=== PATIENT | male | born 1960 | race Caucasian/White ===

== ENCOUNTER → 2016-12-14 | Outpatient (CLI) | payer BC ==
[~2016-12-14] MED LIST: ASPITAB42 PO; CHOL1000 PO; COEN1CAP17 PO; DLD2 PO; DRGTP12 TD; FERR18TA PO; IRON BISGLYCINATE PO; LCTL45 PO; LDDP5 TD; LISI10TA PO; LVNIS100 SQ; MDR4 PO; OXYC-106 PO; OXYC-164 PO; PANCCAP3 PO; POTA-65 PO; PRT/40 PO; RIFA550T2 PO; RIVA1TAB4 PO; [UNRECOGNIZED DRUG - REMARK] PO
--- NOTE | 2016-12-14 10:01 | DIAGNOSTIC IMAGING REPORT ---
RIGHT RIBS UNILATERAL WITH PA CHEST CLINICAL HISTORY: C67.9 Malignant neoplasm of [id number] Malignant neoplasm of l Right bladder carcinoma COMPARISON STUDY: None FINDINGS: Cortical fracture right sixth rib. Remaining ribs are unremarkable. No evidence pneumothorax. IMPRESSION: Nondisplaced cortical fracture right sixth rib. No evidence for pneumothorax. Electronically signed by: Jeremy Rubalcava M.D. 12/14/2016 10:00 AM Dictated Date/Time: 12/14/2016 9:58 AM
--- NOTE | 2016-12-14 11:05 | DIAGNOSTIC IMAGING REPORT ---
LUMBAR SPINE 5 VIEWS CLINICAL HISTORY: Chronic low back pain. FINDINGS: Five views of the lumbar spine are compared to a study dated 02/19/2013. The skeletal structures appear slightly osteopenic. There is no radiographic evidence of fracture or malalignment. There is straightening of the lumbar lordosis. Anterior osteophytes are seen throughout. The transverse and spinous processes appear intact. There is no evidence of spondylolysis. There is advanced degenerative disc space narrowing at L4-L5 with associated endplate sclerosis. There is a large posterior disc osteophyte complex at this level which may contribute to acquired compromise of the central canal. Mild to moderate narrowing is seen at L5-S1. The remaining disc spaces appear preserved. The partially imaged bony pelvis appears intact. There is a nonobstructed abdominal bowel gas pattern. Atherosclerotic calcification is noted throughout the abdominal aorta. A nonobstructing left calculus is suspected. IMPRESSION: 1. No acute bony abnormality is seen involving the lumbosacral spine. 2. Degenerative change as above, greatest at L4-L5. This has modestly progressed from the 2013 examination. 3. Suspect a nonobstructing left renal calculus. Dictated: 12/14/2016 10:50 AM Transcribed: 12/14/2016 11:05 AM [facility] Electronically signed by: Ryan Nagel M.D. 12/14/2016 11:06 AM Dictated Date/Time: 12/14/2016 10:50 AM
== END | disposition home or self-care (01) ==
LOC: C.RAD1850 09:25
PROVIDERS: ATTEND Internal Medicine
DX: M54.5 Low back pain (principal); S22.31XA Fracture of one rib, right side, initial encounter for closed fracture; X58.XXXA Exposure to other specified factors, initial encounter; C22.9 Malignant neoplasm of liver, not specified as primary or secondary; C67.9 Malignant neoplasm of bladder, unspecified; R07.9 Chest pain, unspecified

== ENCOUNTER → 2017-01-26 | Outpatient (CLI) | payer BC ==
--- NOTE | 2017-01-27 08:08 | DIAGNOSTIC IMAGING REPORT ---
MRCP CLINICAL HISTORY: R16.0 Liver massC22.9 Malignant neoplasm of liver COMPARISON STUDY: CT scan dated 08/25/2016 FINDINGS: The spleen is markedly enlarged measuring 21 cm. The liver demonstrates capsular retraction. A 7 cm lobulated central hepatic mass is suspected. There is also a suspected 42 mm right lobe mass. There is no evidence for pancreatic or common bile duct dilatation. There are dilated peripheral intrahepatic biliary ducts, likely secondary to obstruction from the large central mass. There is a small amount of subcapsular hepatic fluid. There are T2 bright renal lesions likely are presenting cysts. IMPRESSION: 1. Intrahepatic biliary ductal dilatation which is felt to be secondary to a large central hepatic mass 2. Also evident is a right lobe hepatic mass 3. Hepatic capsular retraction 4. Marked splenomegaly 5. No evidence of common bile duct dilatation. No evidence of pancreatic duct dilatation. 6. The large central hepatic mass may invade the portal vein. 7. Cholelithiasis. Electronically signed by: Home Vargas M.D. 01/27/2017 8:07 AM Dictated Date/Time: 01/27/2017 8:02 AM
== END | disposition home or self-care (01) ==
LOC: C.MRI 19:27
PROVIDERS: ATTEND Internal Medicine
DX: R16.0 Hepatomegaly, not elsewhere classified (principal); C22.9 Malignant neoplasm of liver, not specified as primary or secondary; K80.20 Calculus of gallbladder without cholecystitis without obstruction; R16.1 Splenomegaly, not elsewhere classified

== ENCOUNTER → 2017-02-24 | Outpatient (CLI) | payer BC ==
[~2017-02-24] MED LIST changes: -DLD2 PO; +HYDR2TAB3 PO; +PANT40TA2 PO; -PRT/40 PO
[2017-02-24 18:08] LABS: BASO % 0.3 %; BASO ABS # 0.02 K/uL (0-0.2); COMPLETE YES; EOS % 0.8 %; HEMATOCRIT 41.4 % (42-52); IG% 2.9 %; LYMPH % 8.1 %; LYMPH ABS # 0.62 K/uL (1.2-3.4); MEAN CELL VOLUME 86.4 fL (80-100); MEAN CORPUSCULAR HEMOGLOBIN 27.6 pg (25-34); MEAN CORPUSCULAR HGB CONC 31.9 g/dl (32-36); MEAN PLATELET VOLUME 11.5 fL (7.4-10.4); MONO % 7.4 %; NEUT % 80.5 %; PLATELET COUNT 111 K/uL (130-400); RED BLOOD COUNT 4.79 M/uL (4.7-6.1); WHITE BLOOD COUNT 7.69 K/uL (4.8-10.8)
[2017-02-24 18:33] LABS: ALB/GLOB RATIO 0.4 (0.9-2); ALKALINE PHOSPHATASE 265 U/L (45-117); ALT/SGPT 63 U/L (12-78); AST/SGOT 87 U/L (15-37); BLOOD UREA NITROGEN 18 mg/dl (7-18); BUN/CREATININE RATIO 26.2 (10-20); CALCIUM 8.7 mg/dl (8.5-10.1); CARBON DIOXIDE 28 mmol/L (21-32); CHLORIDE 106 mmol/L (98-107); CREATININE 0.69 mg/dl (0.60-1.40); GLUCOSE 114 mg/dl (70-99); POTASSIUM 3.6 mmol/L (3.5-5.1); SODIUM 140 mmol/L (136-145)
== END | disposition home or self-care (01) ==
LOC: C.LABBFT 11:35
PROVIDERS: ATTEND Internal Medicine
DX: C22.9 Malignant neoplasm of liver, not specified as primary or secondary (principal)

== ENCOUNTER → 2017-03-09 | Outpatient (CLI) | payer BC ==
[2017-03-09 12:09] LABS: MEAN CORPUSCULAR HGB CONC 31.2 g/dl (32-36)
[2017-03-09 12:12] LABS: HEMATOCRIT 39.8 % (42-52); MEAN CELL VOLUME 83.8 fL (80-100); MEAN CORPUSCULAR HEMOGLOBIN 26.1 pg (25-34); RED BLOOD COUNT 4.75 M/uL (4.7-6.1); WHITE BLOOD COUNT 9.05 K/uL (4.8-10.8)
[2017-03-09 12:49] LABS: PLATELET COUNT 111 K/uL (130-400)
[2017-03-09 12:50] LABS: BASO % 0.3 %; BASO ABS # 0.03 K/uL (0-0.2); COMPLETE YES; EOS % 0.4 %; LYMPH % 6.2 %; LYMPH ABS # 0.56 K/uL (1.2-3.4); MONO % 8.1 %; PLT ESTIMATE DECREASED
[2017-03-09 12:52] LABS: ALB/GLOB RATIO 0.4 (0.9-2); ALKALINE PHOSPHATASE 281 U/L (45-117); ALT/SGPT 69 U/L (12-78); AST/SGOT 107 U/L (15-37); BLOOD UREA NITROGEN 17 mg/dl (7-18); CALCIUM 8.7 mg/dl (8.5-10.1); CARBON DIOXIDE 25 mmol/L (21-32); CHLORIDE 107 mmol/L (98-107); CREATININE 0.67 mg/dl (0.60-1.40); GLUCOSE 127 mg/dl (70-99); POTASSIUM 3.9 mmol/L (3.5-5.1); SODIUM 138 mmol/L (136-145)
== END | disposition home or self-care (01) ==
LOC: C.LABBFT 10:07
PROVIDERS: ATTEND Internal Medicine
DX: R16.0 Hepatomegaly, not elsewhere classified (principal)

== ENCOUNTER 2017-03-20 12:10 | Inpatient (IN) | payer BC ==
[~2017-03-20] VITALS: Ht 172.7 cm; Wt 92.4 kg
[~2017-03-20 12:10] MED LIST changes: -DRGTP12 TD; -FERR18TA PO; -HYDR2TAB3 PO; -LVNIS100 SQ; -OXYC-164 PO; -PANCCAP3 PO
[2017-03-20] MEDS ORDERED: SODIUM CHLORIDE 0.9% 1000ML 250 ML IV STA (12:33)
[2017-03-20] MEDS ORDERED: SODIUM CHLORIDE 0.9% 1000ML 1,000 ML IV STA (12:33)
--- NOTE | 2017-03-20 12:53 | EMERGENCY ROOM VISIT NOTE ---
History Report prepared by Grecia: Samir Oswald Under the Supervision of: Dr. Adriel Beltre M.D. First contact with patient: 12:22 Chief Complaint: ABDOMINAL PAIN Stated Complaint: STOMACH PAINS Nursing Triage Summary: pt reports hx of liver CA . over several weeks abdominal pain has been much worse . " I think my ammonia levels are high and I have loose stools History of Present Illness The patient is a 56 year old male who presents to the Emergency Room with complaints of constant abdominal pain for the last two or three weeks. The patient states that whenever he eats he has a bowel movement within 30 minutes, and he feels more distended which is worse when he eats. The patient states that a year ago he has a small bowel obstruction, and he had to get some of his intestine out. The patient denies any nausea, vomiting, diarrhea, melena, hematochezia, fever, chest pain, or shortness of breath. He states that he is not taking any blood thinners, he has not had a change of medicine, and he denies any fluid in his abdomen. He has a history of hepatitis C and liver cancer, though he is not currently being treated. Source of History: patient Onset: two or three weeks Position: abdomen Timing: constant Modifying Factors (Worsening): eating Associated Symptoms: No SOB, No chest pain, No diarrhea, No fevers, No hematochezia, No melena, No nausea, No vomiting Review of Systems See HPI for pertinent positives & negatives. A total of 10 systems reviewed and were otherwise negative. Past Medical & Surgical Medical Problems: (1) Altered mental status (2) Bladder cancer (3) Bursitis (4) CALCULUS OF KIDNEY (5) CALCULUS OF URETER (6) Chronic Hepatitis C W/O Hepatic Coma (7) Diverticulitis Colon (W/O Ment Of Hemorrhage) (8) Esophageal Reflux (9) Hyperbilirubinemia (10) HYPERTENSION NOS (11) Lumbar Disc Displacement (12) Obesity (13) Rheumatoid arthritis (14) Rheumatoid arthritis of upper arm Old medical records were reviewed. Nurse's notes were reviewed and I agree with. Family History Cancer Hypertension Social History Smoking Status: Never Smoker Alcohol Use: none Marital Status: Housing Status: lives with significant other Occupation Status: employed Current/Historical Medications Scheduled Cholecalciferol (Vitamin D3), 5,000 INTER.UNIT PO DAILY Coenzyme Q10 (Ubidecarenone) (Co Q 10), 100 MG PO BID Ferrous Sulfate (Iron), 1 TAB PO BID Lidocaine (Lidocaine), 1 PATCH TD QAM Lisinopril (Prinivil), 10 MG PO DAILY Methylprednisolone (Methylprednisolone), 4 MG PO DAILY Oxycodone/Acetaminophen 10MG/325MG (Percocet 10MG/325MG), 1 TAB PO QID Pantoprazole (Pantoprazole Sodium), 40 MG PO BID Potassium Chloride (Potassium Chloride ER), 1 TAB PO TID Scheduled PRN [id number] (Headache Relief), 2 TABS PO Q6 PRN for Pain Allergies Coded Allergies: No Known Allergies (Verified , 08/25/16) Physical Exam Vital Signs Date Time Temp Pulse Resp B/P Pulse Ox O2 Delivery O2 Flow Rate FiO2 03/20/17 13:44 84 16 109/75 97 Room Air 03/20/17 12:49 83 03/20/17 12:12 36.4 104 18 146/95 95 Room Air Physical Exam General: Chronically ill appearing, jaundiced, middle aged male in no acute distress. HEENT: Scleral icterus. Normal cephalic atraumatic. Pupils are equal round and reactive to light. Extraocular movements are intact. Oropharynx is pink with moist mucous membranes. No swelling of the mouth lips or tongue. Neck: Supple with a midline trachea. No meningeal signs or stiffness, no JVD or bruits. No Stridor. Chest: Clear to auscultation bilaterally. No wheezes or rhonchi. No increased work of breathing. Heart: regular rate and rhythm. Abdomen: Mildly distended, well healing surgical scar incision, moderate tenderness over the lower abdominal bilaterally, without rebound guarding or rigidity. Extremities: No cyanosis clubbing or edema. No calf tenderness or assymetry Spine/Back. Non tender to palpation. No CVA tenderness Skin: Good turgor without rashes. Neurologic exam: Cranial nerves two through 12 are intact. Motor and sensation are intact and symmetrical throughout. Medical Decision & Procedures ER Provider Diagnostic Interpretation: Radiology results as stated below per my review and radiologist interpretation: CHEST ONE VIEW PORTABLE HISTORY: Atypical CHEST PAIN COMPARISON: Chest 08/25/2016. FINDINGS: Mild chronic interstitial thickening remains unchanged. No new focal lung consolidations. The heart remains mildly enlarged. No pleural effusions. No pneumothorax. Calcified AP window lymph nodes are again noted. IMPRESSION: No significant change compared to the prior study. No acute process. Stable chronic interstitial thickening. Electronically signed by: Con Richardson M.D. 03/20/2017 1:12 PM Dictated Date/Time: 03/20/2017 1:11 PM A[address]OMEN AND PELVIS CT WITHOUT CONTRAST CT DOSE: 1217.90 mGy.cm HISTORY: Epigastric pain. eval for obstruction, infection TECHNIQUE: Multiaxial CT images of the abdomen and pelvis were performed without contrast. COMPARISON STUDY: MRCP 01/26/2017. Abdomen and pelvis CT 08/25/2016. FINDINGS: The patient's infiltrative central hepatic mass is better appreciated on the recent MRCP. There is also an additional masses within the right hepatic dome. These result in the peripheral intrahepatic bile duct dilatation which remains unchanged. Cholelithiasis and bilateral nephrolithiasis. Splenomegaly persists. Small to moderate amount of ascites. Multiple upper abdominal varicosities persist. The pancreas and adrenal glands are unremarkable. No retroperitoneal lymphadenopathy. There are few new pulmonary nodules seen at the lung bases. The largest in the right middle lobe measures 7 mm. These likely represent metastatic foci. No pneumoperitoneum. No pneumatosis. No suspicious lytic or blastic osseous lesions. Healing/healed right anterior rib fracture. Small fat and fluid containing midline incisional hernia. The bladder and prostate are unremarkable. Small fat-containing bilateral inguinal hernias. Suboptimal evaluation for bowel pathology due to the lack of intravenous and oral contrast. There may be mild thickening within the proximal sigmoid colon. Small bowel anastomosis within the mid anterior abdomen. No evidence for bowel obstruction. Mild mesenteric edema. Colonic diverticulosis. IMPRESSION: 1. There is suggestion of mild thickening of the proximal sigmoid colon. This could be due to underdistention or a low-grade nonspecific colitis or less likely mild diverticulitis. There are no definite inflamed diverticula at this location. 2. The patient's infiltrative central hepatic mass and right hepatic lobe masses are better appreciated on the recent MRCP. 3. There are a few new nodules with the largest in the right middle lobe measuring 7 mm. These are consistent with metastatic foci. 4. Small to moderate ascites. 5. Cholelithiasis. 6. Bilateral nephrolithiasis. No hydronephrosis. 7. Stable splenomegaly.. Electronically signed by: Con Richardson M.D. 03/20/2017 1:54 PM Dictated Date/Time: 03/20/2017 1:40 PM Laboratory Results 03/20/17 12:40 Red Blood Count 4.71, Mean Corpuscular Volume 81.1, Mean Corpuscular Hemoglobin 27.2, Mean Corpuscular Hemoglobin Concent 33.5, Mean Platelet Volume 10.4 03/20/17 12:40 Test 03/20/17 12:40 03/20/17 13:20 White Blood Count 9.87 K/uL (4.8-10.8) Red Blood Count 4.71 M/uL (4.7-6.1) Hemoglobin 12.8 g/dL (14.0-18.0) Hematocrit 38.2 % (42-52) Mean Corpuscular Volume 81.1 fL (80-100) Mean Corpuscular Hemoglobin 27.2 pg (25-34) Mean Corpuscular Hemoglobin Concent 33.5 g/dl (32-36) Platelet Count 153 K/uL (130-400) Mean Platelet Volume 10.4 fL (7.4-10.4) RDW Standard Deviation 60.6 fL (36.4-46.3) RDW Coefficient of Variation 20.4 % (11.5-14.5) Neutrophils % (Manual) 77.8 % Lymphocytes % (Manual) 7.7 % Monocytes % (Manual) 3.4 % Eosinophils % (Manual) 3.4 % Metamyelocytes % 1.7 % Myelocytes % 6.0 % Neutrophils # (Manual) 7.68 K/uL (1.4-6.5) Total Absolute Neutrophils 7.68 K/uL (1.4-6.5) Lymphocytes # (Manual) 0.76 K/uL (1.2-3.4) Total Absolute Lymphocytes 0.76 K/uL (1.2-3.4) Monocytes # (Manual) 0.34 K/uL (0.11-0.59) Eosinophils # (Manual) 0.34 K/uL (0-0.5) Metamyelocytes # 0.17 K/uL (0-0) Myelocytes # 0.59 K/uL (0-0) Anisocytosis PRESENT Target Cells 1+ Echinocytes 1+ Prothrombin Time 20.9 SECONDS (9.0-12.0) Prothromb Time International Ratio 1.9 (0.9-1.1) Activated Partial Thromboplast Time 33.2 SECONDS (21.0-31.0) Partial Thromboplastin Ratio 1.3 Anion Gap 11.0 mmol/L (3-11) Est Creatinine Clear Calc Drug Dose 115.3 ml/min Estimated GFR () 116.1 Estimated GFR (Non- 100.2 BUN/Creatinine Ratio 25.5 (10-20) Calcium Level 8.4 mg/dl (8.5-10.1) Aspartate Amino Transf (AST/SGOT) 186 U/L (15-37) Alanine Aminotransferase (ALT/SGPT) 95 U/L (12-78) Alkaline Phosphatase 436 U/L (45-117) Total Protein 7.5 gm/dl (6.4-8.2) Albumin 2.1 gm/dl (3.4-5.0) Lipase 128 U/L (73-393) Ammonia 46.0 umol/L (11-32) Laboratory studies as stated above per my review. Medications Administered Medications (Trade) Dose Ordered Sig/Shashi Route Start Time Stop Time Status Last Admin Dose Admin Sodium Chloride 250 ml @ 999 mls/hr Q16M STAT IV 03/20/17 12:33 03/20/17 12:48 DC 03/20/17 12:33 999 MLS/HR Sodium Chloride (Nss 1000ml) 1,000 ml @ 100 mls/hr Q10H STAT IV 03/20/17 12:33 03/20/17 16:54 DC 03/20/17 13:42 100 MLS/HR Ondansetron HCl (Zofran Inj) 4 mg NOW STAT IV 03/20/17 12:54 03/20/17 12:55 DC 03/20/17 13:00 4 MG Hydromorphone HCl (Dilaudid Inj) 1 mg NOW STAT IV 03/20/17 12:54 03/20/17 12:55 DC 03/20/17 13:01 1 MG Hydromorphone HCl (Dilaudid Inj) 1 mg NOW STAT IV 03/20/17 14:10 03/20/17 14:11 DC 03/20/17 14:22 1 MG ECG Indication: abdominal pain Rate (beats per minute): 86 Rhythm: normal sinus Findings: PAC (occasional), no acute ischemic change Comparison ECG Date: 08/25/16 Change: PACs are now present ED Course 1222: Past medical records reviewed. The patient was evaluated in room B5, and a complete history and physical examination were performed. 1233: Sodium Chloride 1000 ml @ 100 mls/hr IV, Sodium Chloride 250 ml @ 999 mls/ hr IV 1254: Dilaudid Inj 1mg IV, Zofran Inj 4mg IV 1354: I reassessed the patient, and he states that he went to [facility] for treatment, and they said there is nothing that they could do for him. 1406: I discussed the patient's case with Dr. Sosa. He is going to evaluate the patient for further treatment 1409: I reassessed the patient, and he was in more pain, and he wants more pain medication. 1410: Dilaudid Inj 1mg IV Medical Decision Differentials include, but are not limited to; liver failure, infection, SBP, ascites, electrolyte or metabolic abnormality. This patient comes in as described above. He has advanced liver disease/liver cancer. He has been seen by the cancer [facility] and according to the patient is they stopped treatment in December and told him that they could not help them anymore. He comes in with complaints when he eats he has to have immediate bowel movement and is concerned for dehydration. He does have some lower abdominal discomfort with this as well. He's gotten increasingly jaundiced as well. He's had no confusion. IV access established and multiple blood testing was obtained. He was found to be significantly jaundiced on exam and has a bilirubin of 17 which is up significantly from 11 days ago when it was 6. He has no significant electrolyte or metabolic abnormality otherwise. I did a noncontrast CT of his abdomen. He does have this hepatic mass. He may also have some colitis. I think that his symptoms are likely from malabsorption from his liver disease. He has had an MRCP in December and was told that they could not stent the liver. He also told me that they told him at the time they could not externally drain him either. The patient did receive IV hydration as well as IV Dilaudid for pain and nausea management as well as IV Zofran. He did receive additional dose of Dilaudid as well. I do think he needs to be admitted for pain management hydration and further treatment and evaluation. I have consulted the [facility] hospitalist to see him in the ER for likely admission Consults Time Called: 1401 Consulting Physician: Dr. Sosa Returned Call: [phone] I discussed the patient's case with Dr. Sosa. He is going to evaluate the patient for further treatment Impression Primary Impression: Liver failure Additional Impressions: Lower abdominal pain Colitis Hepatitis Scribe Attestation The scribe's documentation has been prepared under my direction and personally reviewed by me in its entirety. I confirm that the note above accurately reflects all work, treatment, procedures, and medical decision making performed by me. Departure Information Dispostion Being Evaluated By Hospitalist Referrals Rolando Shoemaker M.D. (PCP) Patient Instructions [facility] Problem Qualifiers
[2017-03-20] MEDS ORDERED: ONDANSETRON INJ 2 MG/ML 2 ML VIAL IV STA (12:54)
[2017-03-20] MEDS ORDERED: HYDROmorphone INJ 1 MG/ML SYR IV STA ×2 (12:54→14:10)
[2017-03-20] MEDS ORDERED: FERR18TA PO (12:59)
[2017-03-20 13:08] LABS: HEMATOCRIT 38.2 % (42-52); MEAN CELL VOLUME 81.1 fL (80-100); MEAN CORPUSCULAR HEMOGLOBIN 27.2 pg (25-34); MEAN CORPUSCULAR HGB CONC 33.5 g/dl (32-36); MEAN PLATELET VOLUME 10.4 fL (7.4-10.4); PLATELET COUNT 153 K/uL (130-400); RED BLOOD COUNT 4.71 M/uL (4.7-6.1); WHITE BLOOD COUNT 9.87 K/uL (4.8-10.8)
--- NOTE | 2017-03-20 13:13 | DIAGNOSTIC IMAGING REPORT ---
CHEST ONE VIEW PORTABLE HISTORY: Atypical CHEST PAIN COMPARISON: Chest 08/25/2016. FINDINGS: Mild chronic interstitial thickening remains unchanged. No new focal lung consolidations. The heart remains mildly enlarged. No pleural effusions. No pneumothorax. Calcified AP window lymph nodes are again noted. IMPRESSION: No significant change compared to the prior study. No acute process. Stable chronic interstitial thickening. Electronically signed by: Con Richardson M.D. 03/20/2017 1:12 PM Dictated Date/Time: 03/20/2017 1:11 PM
[2017-03-20 13:18] LABS: INR 1.9 (0.9-1.1); PARTIAL THROMBOPLASTIN RATIO 1.3; PROTHROMBIN TIME (PATIENT) 20.9 SECONDS (9.0-12.0)
[2017-03-20 13:40] LABS: POTASSIUM 3.5 mmol/L (3.5-5.1)
[2017-03-20 13:42] LABS: BUN/CREATININE RATIO 25.5 (10-20); CALCIUM 8.4 mg/dl (8.5-10.1); CREATININE 0.78 mg/dl (0.60-1.40)
--- NOTE | 2017-03-20 13:55 | DIAGNOSTIC IMAGING REPORT ---
ABDOMEN AND PELVIS CT WITHOUT CONTRAST CT DOSE: 1217.90 mGy.cm HISTORY: Epigastric pain. eval for obstruction, infection TECHNIQUE: Multiaxial CT images of the abdomen and pelvis were performed without contrast. COMPARISON STUDY: MRCP 01/26/2017. Abdomen and pelvis CT 08/25/2016. FINDINGS: The patient's infiltrative central hepatic mass is better appreciated on the recent MRCP. There is also an additional masses within the right hepatic dome. These result in the peripheral intrahepatic bile duct dilatation which remains unchanged. Cholelithiasis and bilateral nephrolithiasis. Splenomegaly persists. Small to moderate amount of ascites. Multiple upper abdominal varicosities persist. The pancreas and adrenal glands are unremarkable. No retroperitoneal lymphadenopathy. There are few new pulmonary nodules seen at the lung bases. The largest in the right middle lobe measures 7 mm. These likely represent metastatic foci. No pneumoperitoneum. No pneumatosis. No suspicious lytic or blastic osseous lesions. Healing/healed right anterior rib fracture. Small fat and fluid containing midline incisional hernia. The bladder and prostate are unremarkable. Small fat-containing bilateral inguinal hernias. Suboptimal evaluation for bowel pathology due to the lack of intravenous and oral contrast. There may be mild thickening within the proximal sigmoid colon. Small bowel anastomosis within the mid anterior abdomen. No evidence for bowel obstruction. Mild mesenteric edema. Colonic diverticulosis. IMPRESSION: 1. There is suggestion of mild thickening of the proximal sigmoid colon. This could be due to underdistention or a low-grade nonspecific colitis or less likely mild diverticulitis. There are no definite inflamed diverticula at this location. 2. The patient's infiltrative central hepatic mass and right hepatic lobe masses are better appreciated on the recent MRCP. 3. There are a few new nodules with the largest in the right middle lobe measuring 7 mm. These are consistent with metastatic foci. 4. Small to moderate ascites. 5. Cholelithiasis. 6. Bilateral nephrolithiasis. No hydronephrosis. 7. Stable splenomegaly.. Electronically signed by: Con Richardson M.D. 03/20/2017 1:54 PM Dictated Date/Time: 03/20/2017 1:40 PM
[2017-03-20 14:09] LABS: ANISOCYTOSIS PRESENT; COMPLETE YES; ECHINOCYTES 1+; EOSINOPHIL % 3.4 %; LYMPH ABS # 0.76 K/uL (1.2-3.4); LYMPHOCYTE % 7.7 %; META ABS # 0.17 K/uL (0-0); METAMYELOCYTE % 1.7 %; NEUTROPHILS % 77.8 %; TARGET CELLS 1+
[2017-03-20 15:33] VITALS: Ht 172.7 cm; Wt 92.4 kg
[2017-03-20] MEDS ORDERED: POLYETHYLENE (MIRALAX) 17 GM PACK PO PRN (15:45)
[2017-03-20] MEDS ORDERED: ONDANSETRON INJ 2 MG/ML 2 ML VIAL IV PRN (15:45)
[2017-03-20] MEDS ORDERED: ACETAMINOPHEN 325 MG TAB PO PRN (15:45)
[2017-03-20] MEDS ORDERED: ALUMINUM/MAGNESIUM/SIMETH (MAALOX MAX) 30 ML UDC PO PRN (15:45)
[2017-03-20] MEDS ORDERED: ZOLPIDEM TARTRATE 5 MG TAB PO PRN ×2 (15:45)
[2017-03-20] MEDS ORDERED: MAGNESIUM HYDROXIDE SUSP 30 ML UDC PO PRN (15:45)
[2017-03-20] MEDS ORDERED: HYDROmorphone HCL 2 MG TAB PO PRN (16:00)
[2017-03-20 16:17] VITALS: O2SAT 96
--- NOTE | 2017-03-20 16:42 | History and Physical ---
History & Physical Date & Time of Service: March 20, 2017 at 14:10 Chief Complaint: Stomach Pains Primary Care Physician: Rolando Shoemaker M.D. History of Present Illness Source: patient, parent, spouse, partner 56M with a PMHx with inoperable end stage metastatic liver cancer presents with abdominal pain and fast GI transit after eating. The symptoms have been worsening in the past week and the patient is currently unable to eat without running to the bathroom. The patient would like alleviation of these symptoms and abdominal pain after eating. Pt has also recently noticed that his eyes have been turning more yellow during this period. The patient sees Dr. Shoemaker and isn't following with a GI or Heme/ Onc doc in [place]. Pt understands the terminal nature of his condition and has not involved hospice care yet - Dr. Shoemaker is managing the hospice treatment. The pt relates a story that when he eats a chip with salsa he will have to run to the bathroom in 20-30 minutes and have abdominal pain. Pt denies having diarrhea, states that his stools are formed. Pt has been drinking mostly liquids this past week - soda, juice and water. Pt is interested in the possible palliative radiation treatment. Pt and also confirmed that the pt is DNR/DNI. ROS: Lost 17lbs between PCP visits. No fevers, no chest pain, no SOB. Skin is mildly itchy. PSHx: Surgery for SBO in 2016. SHx: History of Hep C, former smoker, does not drink alcohol. + Past Medical/Surgical History Medical Problems: (1) Bladder cancer Status: Resolved (2) Bursitis Status: Chronic (3) CALCULUS OF KIDNEY Status: Resolved (4) CALCULUS OF URETER Status: Resolved (5) Chronic Hepatitis C W/O Hepatic Coma Status: Chronic (6) Diverticulitis Colon (W/O Ment Of Hemorrhage) Status: Resolved (7) Esophageal Reflux Status: Chronic (8) HYPERTENSION NOS Status: Chronic (9) Lumbar Disc Displacement Status: Chronic (10) Obesity Status: Chronic (11) Rheumatoid arthritis Status: Chronic (12) Rheumatoid arthritis of upper arm Status: Resolved Family History Cancer Hypertension Social History Smoking Status: Never Smoker Marital Status: Occupational Status: employed Immunizations History of Influenza Vaccine: Yes History of Tetanus Vaccine?: UTD History of Pneumococcal: Yes History of Hepatitis B Vaccine: No Multi-Drug Resistant Organisms History of MDRO: No Allergies Coded Allergies: No Known Allergies (Verified , 08/25/16) Home Medications Scheduled Cholecalciferol (Vitamin D3), 5,000 INTER.UNIT PO DAILY Coenzyme Q10 (Ubidecarenone) (Co Q 10), 100 MG PO BID Ferrous Sulfate (Iron), 1 TAB PO BID Lidocaine (Lidocaine), 1 PATCH TD QAM Lisinopril (Prinivil), 10 MG PO DAILY Methylprednisolone (Methylprednisolone), 4 MG PO DAILY Oxycodone/Acetaminophen 10MG/325MG (Percocet 10MG/325MG), 1 TAB PO QID Pantoprazole (Pantoprazole Sodium), 40 MG PO BID Potassium Chloride (Potassium Chloride ER), 1 TAB PO TID Scheduled PRN Pgsnuxp-Xljdowygtekjw-Tekqvbox (Headache Relief), 2 TABS PO Q6 PRN for Pain Review of Systems Constitutional: No chills, No fever Respiratory: No cough, No shortness of breath, No sputum, No wheezing Abdomen: + pain, No nausea, No vomiting Musculoskeletal: No joint pain, No muscle pain Endocrine: No fatigue Physical Exam Vital Signs Date Time Temp Pulse Resp B/P Pulse Ox O2 Delivery O2 Flow Rate FiO2 03/20/17 13:44 84 16 109/75 97 Room Air 03/20/17 12:49 83 03/20/17 12:12 36.4 104 18 146/95 95 Room Air General Appearance: WD/WN, + pertinent finding (jaundice with scleral icterus) Eyes: PERRL, + pertinent finding (scleral icterus) Respiratory/Chest: chest non-tender, lungs clear, normal breath sounds, no respiratory distress, no accessory muscle use Cardiovascular: regular rate, rhythm, no edema, no gallop, no murmur, normal peripheral pulses Abdomen/GI: normal bowel sounds, no pulsatile mass, + tenderness, + pertinent finding (pt has diffuse ascites over the abdomen, enlarged belly, multiple distended veins over lateral and medial abdomen, difficult to palpate organomegaly due to abdominal . TTP over the umbilicus and periumbilically. Non tender flanks. Pt has pain when asked to sit up. ) Back: no CVA tenderness Extremities/Musculoskelatal: + pertinent finding (Good muscle strength in the feet bilaterally, to extension and flexion. 2+ pitting edema bilaterally. TTP right ankle. ) Neurologic/Psych: no motor/sensory deficits, alert, normal mood/affect, oriented x 3 Diagnostics Laboratory Results Results Past 24 Hours Test 03/20/17 12:40 03/20/17 13:20 Range/Units White Blood Count 9.87 4.8-10.8 K/uL Red Blood Count 4.71 4.7-6.1 M/uL Hemoglobin 12.8 14.0-18.0 g/dL Hematocrit 38.2 42-52 % Mean Corpuscular Volume 81.1 80-100 fL Mean Corpuscular Hemoglobin 27.2 25-34 pg Mean Corpuscular Hemoglobin Concent 33.5 32-36 g/dl Platelet Count 153 130-400 K/uL Mean Platelet Volume 10.4 7.4-10.4 fL RDW Standard Deviation 60.6 36.4-46.3 fL RDW Coefficient of Variation 20.4 11.5-14.5 % Neutrophils % (Manual) 77.8 % Lymphocytes % (Manual) 7.7 % Monocytes % (Manual) 3.4 % Eosinophils % (Manual) 3.4 % Metamyelocytes % 1.7 % Myelocytes % 6.0 % Neutrophils # (Manual) 7.68 1.4-6.5 K/uL Total Absolute Neutrophils 7.68 1.4-6.5 K/uL Lymphocytes # (Manual) 0.76 1.2-3.4 K/uL Total Absolute Lymphocytes 0.76 1.2-3.4 K/uL Monocytes # (Manual) 0.34 0.11-0.59 K/uL Eosinophils # (Manual) 0.34 0-0.5 K/uL Metamyelocytes # 0.17 0-0 K/uL Myelocytes # 0.59 0-0 K/uL Anisocytosis PRESENT Target Cells 1+ Echinocytes 1+ Prothrombin Time 20.9 9.0-12.0 SECONDS Prothromb Time International Ratio 1.9 0.9-1.1 Activated Partial Thromboplast Time 33.2 21.0-31.0 SECONDS Partial Thromboplastin Ratio 1.3 Sodium Level 138 136-145 mmol/L Potassium Level 3.5 3.5-5.1 mmol/L Chloride Level 103 98-107 mmol/L Carbon Dioxide Level 24 21-32 mmol/L Anion Gap 11.0 3-11 mmol/L Blood Urea Nitrogen 20 7-18 mg/dl Creatinine 0.78 0.60-1.40 mg/dl Est Creatinine Clear Calc Drug Dose 115.3 ml/min Estimated GFR () 116.1 Estimated GFR (Non- 100.2 BUN/Creatinine Ratio 25.5 10-20 Random Glucose 127 70-99 mg/dl Calcium Level 8.4 8.5-10.1 mg/dl Total Bilirubin 17.8 0.2-1 mg/dl Direct Bilirubin 14.0 0-0.2 mg/dl Aspartate Amino Transf (AST/SGOT) 186 15-37 U/L Alanine Aminotransferase (ALT/SGPT) 95 12-78 U/L Alkaline Phosphatase 436 45-117 U/L Total Protein 7.5 6.4-8.2 gm/dl Albumin 2.1 3.4-5.0 gm/dl Lipase 128 73-393 U/L Microbiology Results 03/20/17 Blood Culture, Received Pending 03/20/17 Blood Culture, Received Pending Diagnostic Radiology ABDOMEN AND PELVIS CT WITHOUT CONTRAST CT DOSE: 1217.90 mGy.cm HISTORY: Epigastric pain. eval for obstruction, infection TECHNIQUE: Multiaxial CT images of the abdomen and pelvis were performed without contrast. COMPARISON STUDY: MRCP 01/26/2017. Abdomen and pelvis CT 08/25/2016. FINDINGS: The patient's infiltrative central hepatic mass is better appreciated on the recent MRCP. There is also an additional masses within the right hepatic dome. These result in the peripheral intrahepatic bile duct dilatation which remains unchanged. Cholelithiasis and bilateral nephrolithiasis. Splenomegaly persists. Small to moderate amount of ascites. Multiple upper abdominal varicosities persist. The pancreas and adrenal glands are unremarkable. No retroperitoneal lymphadenopathy. There are few new pulmonary nodules seen at the lung bases. The largest in the right middle lobe measures 7 mm. These likely represent metastatic foci. No pneumoperitoneum. No pneumatosis. No suspicious lytic or blastic osseous lesions. Healing/healed right anterior rib fracture. Small fat and fluid containing midline incisional hernia. The bladder and prostate are unremarkable. Small fat-containing bilateral inguinal hernias. Suboptimal evaluation for bowel pathology due to the lack of intravenous and oral contrast. There may be mild thickening within the proximal sigmoid colon. Small bowel anastomosis within the mid anterior abdomen. No evidence for bowel obstruction. Mild mesenteric edema. Colonic diverticulosis. IMPRESSION: 1. There is suggestion of mild thickening of the proximal sigmoid colon. This could be due to underdistention or a low-grade nonspecific colitis or less likely mild diverticulitis. There are no definite inflamed diverticula at this location. 2. The patient's infiltrative central hepatic mass and right hepatic lobe masses are better appreciated on the recent MRCP. 3. There are a few new nodules with the largest in the right middle lobe measuring 7 mm. These are consistent with metastatic foci. 4. Small to moderate ascites. 5. Cholelithiasis. 6. Bilateral nephrolithiasis. No hydronephrosis. 7. Stable splenomegaly.. CHEST ONE VIEW PORTABLE HISTORY: Atypical CHEST PAIN COMPARISON: Chest 08/25/2016. FINDINGS: Mild chronic interstitial thickening remains unchanged. No new focal lung consolidations. The heart remains mildly enlarged. No pleural effusions. No pneumothorax. Calcified AP window lymph nodes are again noted. IMPRESSION: No significant change compared to the prior study. No acute process. Stable chronic interstitial thickening. EKG Sinus rhythm with Premature atrial complexes Possible Anterior infarct , age undetermined Abnormal ECG When compared with ECG of 25-AUG-2016 06:31, Premature atrial complexes are now Present Impression Assessment and Plan 56M with a PMHx of Metastatic Hepatocellular carcinoma s/p failed treatment at the [facility] in [place] p/w a one week history of inability abdominal pain and quick PO to fecal transit, non diarrhea type. CT Scan of the abdomen revealed intrahepatic cholestasis, liver mets and moderate ascites. Bilirubin was found to be 17, up from 6 one week ago. Pt follows with Dr. Shoemaker, has had conversation about home hospice, not brought on board yet. Will involve radiation oncology for palliative radiation treatment. Will try pancrealipase for GI symptoms and Dilaudid IV for severe pain and PO for moderate pain. Fast GI Transit likely 2/2 malabsorption - Lipase is 127, WNL. There is a concern for malabsorption (either lack of bile or pancreatic obstruction). - Trial of Pancrealipase 36,000 units per meal, re-evaluate tomorrow, if unsuccessful can try bile acid binding resin. - Can also consider pureed meals. Metastatic Liver Carcinoma - Pt was treated at [facility] in [place] and is not on any treatment. - Carcinoma is likely the cause of elevated AST, ALT, INR, PT and PTT. Conjugated Hyperbilirubinemia - Likely from intrahepatic obstruction. Hepatic mass is not operable because of infiltration to portal vein. - Pt is urinating out the bilirubin because it is conjugated. However the acute rise in one week is concerning. - Continue to monitor bilirubin. Abdominal Pain - Dilaudid IV 1mg Q2 PRN for severe pain. - Dilaudid PO 4mg Q4 PRN for moderate pain. Left Calf Pain - Pt is high risk of DVT. - F/u US Bilaterally. HTN: Lisinopril 10m daily GERD: c/w home med protonix 40mg BID Hypokalemia: KCl tabs 20meq, dialy. Iron Deficiency: Ferrous Sulfate 1tab PO BID RITCHIE: Aspirin -c/w home med Acetaminophen - Caffein tabs PRN Vit D Def: c/w home med 5000IU Daily Back Pain: c/w home med Lidocaine Patch - Other pain meds as above DVT Proph- Lovenox 40mg IV daily Dispo: Med Surg, Full Diet, DNR/DNI Resident Physician Supervision Note: I interviewed and examined the patient. Discussed with Dr. Sosa and agree with findings and plan as documented in the note. Any exceptions or clarifications are listed here: None Documented By: Chinedu Michaels abdominal pain, large volume stools ~30mins after eating. notes dilauded helped abdominal pain. stools occur after eating just about anything (relates after eggs as well as chips and salsa - doesn't seem to occur more/differently with different types of ingestions) notes PCP has things "ready to go when i need hospice" so not interested in discussing this further with case management as of yet ros otherwise negative except for as above vitals noted nad breathing unlabored, markedly jaundiced, abdomen distended a/p liver cancer -appearing palliative treatment as main goals -does not believe chemo helpful at this point - clinical presentation and severity of disease makes this seem likely -given pain and intrahepatic disarray (ductal blockage) eval for benefit from palliative XRT DVT - lovenox Resident Involvement: Resident Care Provided Care Provided: [facility]
[2017-03-20 16:43] LABS: MANUAL MICROSCOPIC REQUIRED? YES; REVIEW REQ? NO; SULFASALICYLIC ACID POS (NEG); URINE APPEARANCE SLIGHTLY CLOUDY (CLEAR); URINE COLOR BROWN; URINE SPECIFIC GRAVITY 1.029 (1.000-1.030)
[2017-03-20 16:55] LABS: URINE BACTERIA 1+ (NEG); URINE RBC 0-4 /hpf (0-4)
[2017-03-20 16:56] LABS: URINE GRANULAR CAST 0-3 /lpf (0); URINE MUCUS PRESENT (NONE PRSENT)
[2017-03-20 16:57] LABS: URINE WHITE BLOOD CELL CAST 0-3 /lpf (0)
[2017-03-20 17:00] VITALS: BP 124/83; PULSE 81; TEMP 36.7; O2SAT 96
[2017-03-20] MEDS: HYDROmorphone INJ 1 MG/ML SYR IV PRN ×3 (17:05→23:14)
[2017-03-20] MEDS: PANCREAZE (LIPASE 16,800U) CAP PO SCH (17:17)
[2017-03-20] MEDS: FERROUS SULFATE 325 MG TAB PO SCH (17:18)
--- NOTE | 2017-03-20 18:29 | DIAGNOSTIC IMAGING REPORT ---
BILATERAL LOWER EXTREMITY VENOUS DOPPLER HISTORY: high risk DVT, calf pain COMPARISON STUDY: None. FINDINGS: There is normal compressibility, flow, and augmentation within the right lower extremity deep venous system. There is extensive thrombus seen throughout the entire left lower extremity deep venous system. The majority of this is occlusive. IMPRESSION: No DVT within the right lower extremity. Extensive DVT throughout the left lower extremity. Electronically signed by: Con Richardson M.D. 03/20/2017 6:27 PM Dictated Date/Time: 03/20/2017 6:26 PM
[2017-03-20] MEDS: LIDODERM (LIDOCAINE) PATCH 5% TD SCH ×2 (18:45→18:47)
[2017-03-20] MEDS ORDERED: ENOXAPARIN 1 MG/KG SQ SCH (19:00)
[2017-03-20 19:19] VITALS: BP 130/76; PULSE 80; TEMP 36.6; O2SAT 97
[2017-03-20] MEDS: POTASSIUM CHLORIDE 20 MEQ TABCR PO SCH (20:09)
[2017-03-20] MEDS: PANTOprazole SOD 40 MG TAB PO SCH (20:09)
[2017-03-20] MEDS: ENOXAPARIN 100 MG/1ML SYR SQ SCH (20:10)
[2017-03-20] MEDS ORDERED: ENOXAPARIN 40 MG/0.4 ML SYR SQ SCH (21:00)
[2017-03-20 23:15] VITALS: BP 126/78; PULSE 84; TEMP 36.6; O2SAT 95
[2017-03-21] MEDS: HYDROmorphone INJ 1 MG/ML SYR IV PRN ×3 (02:53→09:13)
[2017-03-21] MEDS: PANCREAZE (LIPASE 16,800U) CAP PO SCH ×3 (06:24→17:17)
--- NOTE | 2017-03-21 07:31 | Family Medicine Progress Note ---
Progress Note Date of Service March 21, 2017. Subjective Pt evaluation today including: conversation w/ patient, physical exam, chart review, lab review The patient was seen and examined at bedside. Pt reports that he has eaten a little bit. Had a small stool in the afternoon. His abdominal pain is well controlled. Has a decreased appetite. Pt is taking the Rx'ed medication. Patient is resting comfortably in bed. Plan of care was described to the patient including the new findings of DVT and all questions were answered. present at bedside around 5pm. BILATERAL LOWER EXTREMITY VENOUS DOPPLER HISTORY: high risk DVT, calf pain COMPARISON STUDY: None. FINDINGS: There is normal compressibility, flow, and augmentation within the right lower extremity deep venous system. There is extensive thrombus seen throughout the entire left lower extremity deep venous system. The majority of this is occlusive. IMPRESSION: No DVT within the right lower extremity. Extensive DVT throughout the left lower extremity. Objective Physical Exam General Appearance: WD/WN, no apparent distress Respiratory/Chest: chest non-tender, lungs clear, normal breath sounds, no respiratory distress, no accessory muscle use Cardiovascular: regular rate, rhythm, no edema, no gallop, no JVD, no murmur Abdomen: + pertinent finding (moderate amount of ascites, abdomen is soft, tender to deep palpation of the umbilicus, evidence of venous congestion around the lateral aspect. difficult to assess organomegaly.) Extremities: normal range of motion, no pedal edema, + pertinent finding ( tender LLE, similar to admission exam. Calf tenderness and ankle tenderness. ) Neurologic/Psychiatric: no motor/sensory deficits, alert, normal mood/affect, oriented x 3 Skin: no rash Assessment and Plan 56M with a PMHx of Metastatic Hepatocellular carcinoma s/p failed remission at the [facility] in [place] p/w a one week history of inability abdominal pain and quick PO to fecal transit, non diarrhea type. CT Scan of the abdomen revealed intrahepatic cholestasis, liver mets and moderate ascites. Bilirubin was found to be 17, up from 6 one week ago. Pt follows with Dr. Shoemaker, has had conversation about home hospice, not brought on board yet. Dr. Milsl recommend no palliative radiation. Pancreazyme for GI symptoms has slowed GI transit time. Pt has received Dilautid for pain. US LLE showed extensive DVT, anticoagulation started. Fast GI Transit likely 2/2 malabsorption - One small stool while inpatient, no frequent stooling after eating. - c/w Pancrealipase 36,000 units per meal. DVT LLE - Lovenox 90SQ INJ BID. Pt will likely need anticoagulation therapy for the next 6 months. Metastatic Liver Carcinoma - Pt was treated at [facility] in [place] and is not on any treatment. - Carcinoma is likely the cause of elevated AST, ALT, INR, PT and PTT. - As per Dr. Mills's consult, palliative radiation therapy is not indicated at present. Conjugated Hyperbilirubinemia - Stable from previous day, if not a little decreased. Continue to monitor. Abdominal Pain - c/w Dilaudid PO 4mg Q4 PRN for moderate pain. HTN: c/w Lisinopril 10m daily GERD: c/w home med protonix 40mg BID Hypokalemia: c/w KCl tabs 20meq, dialy. Iron Deficiency: c/w Ferrous Sulfate 1tab PO BID RITCHIE: c/w home med Acetaminophen - Caffein tabs PRN Vit D Def: c/w home med 5000IU Daily Back Pain: c/w home med Lidocaine Patch - Other pain meds as above DVT Proph- Lovenox as above. Dispo: Med Surg, Full Diet, DNR/DNI Resident Involvement: Resident Care Provided Care Provided: Adult Hospital Medicine History Resident Physician Supervision Note: I was present with Dr. Sosa during the history and exam. I discussed the case with the resident and agree with the findings and plan as documented in the note. Any exceptions or clarifications are listed here. Pt seen and examined at bedside. No acute events overnight. Following receipt of hydromorphone and pancreatic enzyme, has not had BM despite eating in ~1.5 days. Reports no bloating, flatus, change in abd pain, headache, lightheadedness , SOB, fever. General Appearance: WD/WN, obese, other (icteric, ascites) Respiratory: chest non-tender, lungs clear, normal breath sounds, no respiratory distress Cardiovascular: normal peripheral pulses, regular rate, rhythm, no murmur Gastrointestinal: normal bowel sounds, tenderness (diffusely) Assessment/Plan 56 y/o male h/o metastatic hepatocellular CA s/p discharge form [facility] w/ rapid GI transit Loose bowels - concerning for malabsorption considering underlying hepatic dz. Improvement w/ hydromorphone and pancreatic enzyme but w/ ensuing decrease of BM. Bowel sounds present and normal on examination. Awaiting nl BM Metastatic hepatocellular carcinoma - follows closely with his PCP re: initiation of hospice, focused mainly on palliation at this time Conjugated hyperbilirubinemia - trend CMP at present Abdominal pain - continue pain control w/ hydromorphone but will rapidly taper to PO tomorrow/this evening if tolerated. LLE DVT - continue lovenox HTN - continue lisinopril GERD - continue pantoprazole 40mg BID Hypokalemia - stable, continue repletion daily FE deficiency - continue FeSO4, t/c decrease to daily if constipation persists RITCHIE - acetaminophen for pain control
[2017-03-21 07:41] VITALS: BP 120/80; PULSE 89; TEMP 36.7; O2SAT 95
[2017-03-21] MEDS ORDERED: LISINOPRIL 10 MG TAB PO SCH (08:00)
[2017-03-21] MEDS ORDERED: CHOLECALCIFEROL 1000 INTER.UNIT TAB PO SCH (08:00)
[2017-03-21] MEDS ORDERED: METHYLPREDNISOLONE 4 MG TAB PO SCH (08:00)
[2017-03-21] MEDS: FERROUS SULFATE 325 MG TAB PO SCH ×2 (09:13→17:17)
[2017-03-21] MEDS: POTASSIUM CHLORIDE 20 MEQ TABCR PO SCH ×2 (09:14→14:26)
[2017-03-21] MEDS: PANTOprazole SOD 40 MG TAB PO SCH (09:14)
[2017-03-21] MEDS: ENOXAPARIN 100 MG/1ML SYR SQ SCH (09:15)
[2017-03-21] MEDS ORDERED: NURSING VERBAL MED ORDER ONE (11:15)
[2017-03-21] MEDS ORDERED: ACETAMINOPHEN 325 MG TAB PO PRN (11:15)
[2017-03-21 11:46] VITALS: BP 118/75; PULSE 97; TEMP 37; O2SAT 95
[2017-03-21 15:38] VITALS: BP 115/71; PULSE 103; TEMP 37; O2SAT 95
[2017-03-21] MEDS ORDERED: OXYC-164 PO (18:02)
[2017-03-21] MEDS ORDERED: PANCCAP3 PO (18:02)
[2017-03-21] MEDS ORDERED: LVNIS100 SQ (18:02)
--- NOTE | 2017-03-21 18:18 | Radiation Oncology Consult ---
Radiation Oncology Consult Date / Reason March 21, 2017. Physicians Radiation Oncologist: Dr. Nolan Mills Diagnosis (1) Hepatocellular carcinoma History of Present Illness I am seeing Mr. Chan in consultation at the request of Dr. Sosa. Mr. Chan is a 56-year-old gentleman with a history of hepatocellular carcinoma. The patient is currently under hospice care of Dr. Shoemaker and was admitted to the hospital due to frequent bowel movements and significant abdominal pain that is getting worse. Current ED/Hospital course: CXR (03/20/2017) - IMPRESSION: No significant change compared to the prior study. No acute process. Stable chronic interstitial thickening. CT Abdomen/Pelvis (03/20/2017) - IMPRESSION: 1. There is suggestion of mild thickening of the proximal sigmoid colon. This could be due to underdistention or a low-grade nonspecific colitis or less likely mild diverticulitis. There are no definite inflamed diverticula at this location. 2. The patient's infiltrative central hepatic mass and right hepatic lobe masses are better appreciated on the recent MRCP. 3. There are a few new nodules with the largest in the right middle lobe measuring 7 mm. These are consistent with metastatic foci. 4. Small to moderate ascites. 5. Cholelithiasis. 6. Bilateral nephrolithiasis. No hydronephrosis. 7. Stable splenomegaly. Venous Doppler Study (03/20/2017) - IMPRESSION: No DVT within the right lower extremity. Extensive DVT throughout the left lower extremity. Past History Past Medical/Surgical History: Arthritis, Reflux, Cancer, Hypertension, Liver Disease Social History Smoking Status: Never Smoker Hx Tobacco Use In Past Year?: No (@ PPD x 20 yrs) Do You Dip or Chew Tobacco: No Hx Alcohol Use: No Hx Substance Use : No Allergies Coded Allergies: No Known Allergies (Verified , 08/25/16) Home Medications Scheduled Cholecalciferol (Vitamin D3), 5,000 INTER.UNIT PO DAILY Coenzyme Q10 (Ubidecarenone) (Co Q 10), 100 MG PO BID Ferrous Sulfate (Iron), 1 TAB PO BID Lidocaine (Lidocaine), 1 PATCH TD QAM Lisinopril (Prinivil), 10 MG PO DAILY Methylprednisolone (Methylprednisolone), 4 MG PO DAILY Oxycodone/Acetaminophen 10MG/325MG (Percocet 10MG/325MG), 1 TAB PO QID Pantoprazole (Pantoprazole Sodium), 40 MG PO BID Potassium Chloride (Potassium Chloride ER), 1 TAB PO TID Scheduled PRN [id number]-Zyjxejmpxmurf-Yzorvrdh (Headache Relief), 2 TABS PO Q6 PRN for Pain Review of Systems Ear/Hearing: Ear Side: Bilateral Hearing Ability: Normal Hearing Aid: None Edema: Present?: Yes Location Body Site Modifier: Bilateral Type: Non-pitting Degree: Trace Pain Management Side: Bilateral Patient Preferred Pain Scale: 0 - 10 Initial Pain Intensity: 10.0 Physical Exam Height: 5 (Feet) 8.00 (Inches) 172.7 (Centimeters) 1.7272 (Meters) Weight: 203 (Pounds) 11.3 (Ounces) 92.400 (Kilograms) 16714.000 (Grams) Date Time Temp Pulse Resp B/P Pulse Ox O2 Delivery O2 Flow Rate FiO2 03/21/17 15:38 37.0 103 18 115/71 95 03/21/17 11:46 37.0 97 18 118/75 95 Room Air 03/21/17 10:49 Room Air 03/21/17 07:41 36.7 89 20 120/80 95 03/21/17 00:00 Room Air 03/20/17 23:15 36.6 84 18 126/78 95 Room Air 03/20/17 20:00 Room Air 03/20/17 19:19 36.6 80 18 130/76 97 Room Air General Appearance: + moderate distress Head: normocephalic, atraumatic Eyes: + abnormal sclerae exam (Icteric) ENT: normal ENT inspection Neck: supple, no adenopathy Respiratory/Chest: chest non-tender, lungs clear, normal breath sounds, no respiratory distress Cardiovascular: regular rate, rhythm, no edema, no gallop, no JVD, no murmur Abdomen/GI: + tenderness, + distended, + hepatomegaly, + splenomegaly Back: normal inspection, no CVA tenderness, no muscle spasm Neurologic/Psych: alert, oriented x 3 Skin: + jaundice Imaging Imaging studies: were reviewed Assessment & Recommendations Mr. Chan is a 56-year-old gentleman with a history of hepatocellular carcinoma most recently treated with Nexavar at the [facility]. Ultimately, the patient was told that he has no further treatment options and was recommended to enter hospice/palliative care. The patient is currently under the care of Dr. Shoemaker for hospice care. The patient was admitted to the hospital due to frequent bowel movements and abdominal distention. I have been asked to evaluate the patient for consideration of palliative radiation therapy. After reviewing the patient's case and completing a physical examination, I have recommended against any palliative radiation therapy. The patient's pain and discomfort is generalized and is partially due to his abdominal distention. At this point, I would recommend the patient proceed with hospice care underneath the supervision of Dr. Shoemaker. Please call so us with any further questions or concerns. Total Time In Consultation I spent 30 minutes examining and counseling the patient. I spent 15 minutes completing this note. Copy To Jeremy Sosa M.D.; Rolando Shoemaker M.D.
--- NOTE | 2017-03-21 18:25 | Discharge Instructions ---
Discharge Instructions Date of Service March 21, 2017. Admission Reason for Admission: Abdominal Pain; Hyperbilirubinemia Discharge Discharge Diagnosis / Problem: DVT of LLE, Malabsorption Syndrome, Conjugated hyperbilirubinemia Discharge Goals Goal(s): Decrease discomfort, Improve function, Increase independence, Improve disease control, Learn about illness Activity Recommendations Activity Limitations: resume your previous activity . Instructions / Follow-Up Instructions / Follow-Up You have been discharged on 2 new medications: Lovenox 90mg Injections to be taken twice daily. Lovenox is to treat the blood clot in your left leg. It is important to take these injections twice a day, spaced out by 12 hours. Pancreaze, 2 pills, to be taken before meals. Pancreaze will aid in the absorption and digestion of nutrients in the food you eat. We have also given you 30 tabs of Oxycodone 10mg for abdominal pain., to be taken as prescribed. Please follow up with your primary care provider, Dr. Shoemaker, within the next 7 days. Current Hospital Diet Patient's current hospital diet: Regular Diet Discharge Diet Recommended Diet: Regular Diet Pending Studies Studies pending at discharge: no Medical Emergencies . Who to Call and When: Medical Emergencies: If at any time you feel your situation is an emergency, please call 911 immediately. . Non-Emergent Contact Non-Emergency issues call your: Primary Care Provider . . "Provider Documentation" section prepared by Jeremy Sosa. . VTE Core Measure Inpt VTE Proph given/why not?: Enoxaparin (Lovenox)SQ Resident Involvement: Resident Care Provided Care Provided: Adult Hospital Medicine
--- NOTE | 2017-03-21 18:41 | Discharge Summary ---
Discharge Summary Date of Service March 21, 2017. Discharge Summary Admission Date: March 20, 2017 at 15:05 Discharge Date: March 21, 2017 Discharge Disposition: Home Principal Diagnosis: DVT in LE, Conjugated Hyperbilirubinemia, Abdominal Pain, Liver Carcinoma Problems/Secondary Diagnoses: (1) Bursitis Status: Chronic (2) Chronic Hepatitis C W/O Hepatic Coma Status: Chronic (3) Esophageal Reflux Status: Chronic (4) HYPERTENSION NOS Status: Chronic (5) Lumbar Disc Displacement Status: Chronic (6) Obesity Status: Chronic (7) Rheumatoid arthritis Status: Chronic Immunizations: Have You Had Influenza Vaccine: Yes History of Tetanus Vaccine?: UTD History of Pneumococcal: Yes History of Hepatitis B Vaccine: No Medication Reconciliation New Medications: Oxycodone Hcl (Oxycodone Hcl) 10 Mg Tab 1 TAB PO QID PRN for Pain, #30 TAB Enoxaparin (Enoxaparin Sodium) 100 Mg/Ml Inj 90 MG SQ Q12 for 30 Days, #60 PEN 1 Refill Pancrelipase (Lipase-Protease- (Pancreaze) 1 Cap Cap 2 CAP PO AC for 15 Days, #90 CAP 1 Refill Continued Medications: Mdlgevd-Yfzfizeerskwp-Bkxhsxlw (Headache Relief) 1 Tab Tab 2 TABS PO Q6 PRN for Pain Cholecalciferol (Vitamin D3) 1,000 Unit Tab 5000 INTER.UNIT PO DAILY for 90 Days, TAB 3 Refills Coenzyme Q10 (Ubidecarenone) (Co Q 10) 100 Mg Cap 100 MG PO BID Ferrous Sulfate (Iron) Unknown Strength Tab 1 TAB PO BID IRON D.... UNSURE OF THE NAME.. [facility]. Lidocaine (Lidocaine) 1 Patch Tdsy 1 PATCH TD QAM for 7 Days Lisinopril (Prinivil) 10 Mg Tab 10 MG PO DAILY, TAB Methylprednisolone (Methylprednisolone) 4 Mg Tab 4 MG PO DAILY Oxycodone/Acetaminophen 10MG/325MG (Percocet 10MG/325MG) Tab 1 TAB PO QID for Pain, TAB Pantoprazole (Pantoprazole Sodium) 40 Mg Tab 40 MG PO BID Potassium Chloride (Potassium Chloride ER) 20 Meq Tab 1 TAB PO TID Discharge Exam Subjective The patient was seen and examined at bedside. Pt reports that he has eaten a little bit. Had a small stool in the afternoon. His abdominal pain is well controlled. Has a decreased appetite. Pt is taking the Rx'ed medication. Patient is resting comfortably in bed. Plan of care was described to the patient including the new findings of DVT and all questions were answered. present at bedside around 5pm. BILATERAL LOWER EXTREMITY VENOUS DOPPLER HISTORY: high risk DVT, calf pain COMPARISON STUDY: None. FINDINGS: There is normal compressibility, flow, and augmentation within the right lower extremity deep venous system. There is extensive thrombus seen throughout the entire left lower extremity deep venous system. The majority of this is occlusive. IMPRESSION: No DVT within the right lower extremity. Extensive DVT throughout the left lower extremity. Objective Physical Exam General Appearance: WD/WN, no apparent distress Respiratory/Chest: chest non-tender, lungs clear, normal breath sounds, no respiratory distress, no accessory muscle use Cardiovascular: regular rate, rhythm, no edema, no gallop, no JVD, no murmur Abdomen: + pertinent finding (moderate amount of ascites, abdomen is soft, tender to deep palpation of the umbilicus, evidence of venous congestion around the lateral aspect. difficult to assess organomegaly.) Extremities: normal range of motion, no pedal edema, + pertinent finding ( tender LLE, similar to admission exam. Left Calf tenderness and ankle tenderness. ) Neurologic/Psychiatric: no motor/sensory deficits, alert, normal mood/affect, oriented x 3 Skin: no rash Hospital Course 56M with a PMHx of Metastatic Hepatocellular carcinoma s/p failed remission at the [facility] in [place] presents with a one week history of abdominal pain and quick PO to fecal transit, non diarrhea type. CT Scan of the abdomen revealed intrahepatic cholestasis, liver mets and moderate ascites. Bilirubin was found to be 17, up from 6 one week ago. Pt follows with Dr. Shoemaker, has had conversation about home hospice. Dr. Mills recommends no palliative radiation. Pancreazyme for GI symptoms has slowed GI transit time. Pt has received Dilautid for pain. US LLE showed extensive DVT, anticoagulation started. Fast GI Transit likely 2/2 malabsorption - One small stool while inpatient, no frequent stooling after eating. - Will be discharged on Pancrealipase 36,000 units prior to meals. DVT LLE - Pt will be discharged on Lovenox 90SQ INJ BID. Pt will likely need anticoagulation therapy for the next 6 months. Metastatic Liver Carcinoma - As per Dr. Mills's consult (radiation oncology), palliative radiation therapy is not indicated at present. Conjugated Hyperbilirubinemia - Stable from previous day, if not a little decreased. Total Time Spent: Greater than 30 minutes This includes examination of the patient, discharge planning, medication reconciliation, and communication with other providers. Discharge Instructions Please refer to the electronic Patient Visit Report (Discharge Instructions) for additional information. Additional Copies To Rolando Shoemaker M.D. Resident Involvement: Resident Care Provided Care Provided: Adult [facility]
[2017-03-21 19:31] VITALS: BP 124/79; PULSE 92; TEMP 36.6; O2SAT 96
== END 2017-03-21 19:25 | disposition home or self-care (01) | DRG 300 ==
LOC: ENRESERVDT → ENRESERVTM → C.EDB 12:10 → C.4E 15:05
PROVIDERS: ADMIT Family Medicine; ATTEND Family Medicine
DX: I82.4Z2 Acute embolism and thrombosis of unspecified deep veins of left distal lower extremity (principal); C22.9 Malignant neoplasm of liver, not specified as primary or secondary; C79.9 Secondary malignant neoplasm of unspecified site; K90.9 Intestinal malabsorption, unspecified; E80.6 Other disorders of bilirubin metabolism; Z66 Do not resuscitate; Z82.49 Family history of ischemic heart disease and other diseases of the circulatory system; I10 Essential (primary) hypertension; K21.9 Gastro-esophageal reflux disease without esophagitis; D50.9 Iron deficiency anemia, unspecified; R51 Headache; E55.9 Vitamin D deficiency, unspecified; K92.89 Other specified diseases of the digestive system

== ENCOUNTER 2017-03-22 10:19 | Inpatient (IN) | payer BC ==
[~2017-03-22] VITALS: Ht 172.7 cm; Wt 97.6 kg
[~2017-03-22 10:19] MED LIST changes: +FERR18TA PO; -IRON BISGLYCINATE PO; -LCTL45 PO; +LVNIS100 SQ; +OXYC-164 PO; +PANCCAP3 PO; -RIFA550T2 PO; -RIVA1TAB4 PO; -[UNRECOGNIZED DRUG - REMARK] PO
[2017-03-22] MEDS ORDERED: SODIUM CHLORIDE 0.9% 500ML 500 ML IV STA (10:45)
[2017-03-22] MEDS ORDERED: METOCLOPRAMIDE HCL INJ 5 MG/ML 2 ML VIAL IV STA (10:45)
[2017-03-22] MEDS ORDERED: HYDROmorphone INJ 1 MG/ML SYR IV STA ×2 (10:45→12:17)
--- NOTE | 2017-03-22 10:52 | EMERGENCY ROOM VISIT NOTE ---
History Report prepared by Grecia: Britt Marks Under the Supervision of: Dr. Ethan Mejía M.D. First contact with patient: 10:36 Chief Complaint: SHORTNESS OF BREATH Stated Complaint: SOB, STOMACH PAINS-DISCHARGED YESTERDAY History of Present Illness The patient is a 56 year old male who presents to the Emergency Room with complaints of persistent abdominal pain that began prior to arrival. He currently rates his discomfort as a 10/10 in severity. The patient states that he was discharged from the hospital yesterday. He states that he was doing okay at first while at home, but states that throughout the night he woke up in pain several times. The patient states that when he woke this morning he had difficulty ambulating and numbness in his lower extremities. He notes that his abdomen is much more distended than normal. The patient states that he ate half of an egg and sausage croissant this morning and states that immediately after he had a bowel movement which has been abnormal. He additionally associates increased shortness of breath with his symptoms today. Source of History: patient Onset: prior to arrival Position: abdomen Symptom Intensity: 10/10 Timing: other (persistent) Associated Symptoms: + SOB, + numbness (leg) Note: Associated symptoms: increased bowel movements Review of Systems See HPI for pertinent positives & negatives. A total of 10 systems reviewed and were otherwise negative. Past Medical & Surgical Medical Problems: (1) Altered mental status (2) Bladder cancer (3) Bursitis (4) CALCULUS OF KIDNEY (5) CALCULUS OF URETER (6) Chronic Hepatitis C W/O Hepatic Coma (7) Diverticulitis Colon (W/O Ment Of Hemorrhage) (8) Esophageal Reflux (9) Hepatocellular carcinoma (10) Hyperbilirubinemia (11) HYPERTENSION NOS (12) Lumbar Disc Displacement (13) Obesity (14) Rheumatoid arthritis (15) Rheumatoid arthritis of upper arm Family History Cancer Gallbladder disease Hypertension Kidney disease Kidney stones Lung disease Social History Smoking Status: Current Every Day Smoker Alcohol Use: none Marital Status: Housing Status: lives with significant other Occupation Status: employed Current/Historical Medications Scheduled Cholecalciferol (Vitamin D3), 5,000 INTER.UNIT PO DAILY Coenzyme Q10 (Ubidecarenone) (Co Q 10), 100 MG PO BID Enoxaparin (Enoxaparin Sodium), 90 MG SQ Q12 Ferrous Sulfate (Iron), 1 TAB PO BID Lidocaine (Lidocaine), 1 PATCH TD QAM Lisinopril (Prinivil), 10 MG PO DAILY Methylprednisolone (Methylprednisolone), 4 MG PO DAILY Oxycodone/Acetaminophen 10MG/325MG (Percocet 10MG/325MG), 1 TAB PO QID Pancrelipase (Lipase-Protease- (Pancreaze), 2 CAP PO AC Pantoprazole (Pantoprazole Sodium), 40 MG PO BID Potassium Chloride (Potassium Chloride ER), 1 TAB PO TID Scheduled PRN Tgyehmb-Ofrdkabasfaof-Vtjemnla (Headache Relief), 2 TABS PO Q6 PRN for Pain Oxycodone Hcl (Oxycodone Hcl), 1 TAB PO QID PRN for Pain Allergies Coded Allergies: No Known Allergies (Verified , 08/25/16) Physical Exam Vital Signs Date Time Temp Pulse Resp B/P Pulse Ox O2 Delivery O2 Flow Rate FiO2 03/22/17 12:53 89 03/22/17 12:45 94 Room Air 03/22/17 12:00 82 16 112/68 94 Room Air 03/22/17 11:26 96 Room Air 03/22/17 10:30 36.4 102 20 119/74 92 Room Air Physical Exam GENERAL: Patient is a healthy-appearing well-nourished HEAD: Normocephalic atraumatic EYES: Ocular movements intact pupils equal and react to light OROPHARYNX mucous membranes are moist no exudates present no erythema or edema present NECK: Supple no nuchal rigidity CHEST: Good equal expansion LUNGS: Clear and equal to auscultation CARDIAC: Normal S1 and S2 ABDOMEN: Firm, distended abdomen. BACK: No CVA tenderness EXTREMITIES: No pain upon palpation normal muscle strength in all groups no clubbing cyanosis or edema SKIN: Jaundiced. NEURO: Patient is following commands is answering questions appropriately. Alert and oriented x3 Cranial Nerves 2-12 grossly intact Medical Decision & Procedures ER Provider Diagnostic Interpretation: CT results as stated below per my review and radiologist interpretation: CT SCAN OF THE ABDOMEN AND PELVIS WITH IV CONTRAST CLINICAL HISTORY: Generalized abdominal pain. Jaundice. Reported history of liver cancer. COMPARISON STUDY: Abdominal CT dated 03/20/2017 and 05/30/2015. MRCP dated 01/16/2017. TECHNIQUE: Following the IV administration of 90 cc of Optiray 320, CT scan of the abdomen and pelvis is performed from the lung bases to the proximal femora. Images are reviewed in the axial, sagittal, and coronal planes. IV contrast was administered without complication. Automated dose control exposure was utilized. CT DOSE: 1258.56 mGy.cm FINDINGS: Lung bases: The heart is large and without pericardial effusion. The coronary arteries are densely calcified. There are 2 pulmonary nodules at the right lung base seen on images #28 and #56. These measure up to 9 mm, are new from 2015, and are consistent with pulmonary metastases. There is no airspace consolidation typical for pneumonia or pleural effusion. There is a small hiatal hernia with esophageal varices. Liver: The contrast-enhanced liver is enlarged, measuring 22 cm in length. The liver is cirrhotic in morphology and heterogeneous in attenuation. There is nodularity of the hepatic surface contour as well as hypertrophy of the left lobe and caudate. Intrahepatic biliary ductal dilatation is again seen in the left lobe. This is unchanged from 03/20/2017. 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 Thrombus is also seen within the superior mesenteric vein on image #177. There are numerous perigastric collateral vessels. There is also recanalization of the periumbilical vein. There are multiple large hepatic mass is seen throughout the right lobe. A conglomerate of masses in segment 7 and 8 below the diaphragm measures approximately 10 x 6 cm in aggregate dimension. A large lesion in hepatic segment 6 measures at least 6.5 cm. There is ill-defined low attenuation soft tissue material within the caudate lobe and near the hepatic hilum, likely representing infiltrative metastatic disease. Gallbladder: There is nonspecific gallbladder wall edema, likely related to cirrhosis and ascites. Spleen: The spleen is markedly enlarged, measuring 21 cm in length. Pancreas: Unremarkable. Adrenal glands: Unremarkable. Kidneys: The contrast enhanced kidneys demonstrate mild cortical atrophy and are without hydronephrosis. The kidneys enhance symmetrically. There is a 10 mm nonobstructing calculus in the upper pole of left kidney. There are at least 4 nonobstructing right renal calculi measuring up to 8 mm. Right renal cysts measure up to 1.5 cm. Abdominal vasculature: The abdominal aorta is normal in course and caliber noting moderate to advanced atherosclerotic calcification. Bowel: There is evidence of previous small bowel anastomosis within the upper ventral pelvis. No bowel obstruction is seen. Wall thickening within the right colon likely represents portal colopathy. There is moderate to advanced diverticulosis of the left colon without CT evidence of acute diverticulitis. The appendix is well-visualized and normal. Peritoneum: There are numerous omental collateral vessels. No intraperitoneal free air is seen. There is a small to moderate volume of abdominopelvic ascites, not significantly changed from 03/20/2017. There is an ascitic fluid containing umbilical hernia. Lymphadenopathy: None. Pelvic viscera: The bladder, prostate, and seminal vesicles are normal as visualized. There is a small fat-containing right inguinal hernia. Skeletal structures: The skeletal structures appear osteopenic. No lytic or blastic lesions are seen. There is a healed right anterior rib fracture. IMPRESSION: 1. Cirrhotic liver morphology with evidence of portal hypertension including a small to moderate volume of abdominal ascites, marked splenomegaly, omental collaterals, and esophageal varices. 2. Large infiltrative mass lesions throughout the liver involving predominantly the right lobe in the lawrence hepatis have not significantly changed in appearance from study performed 2 days previously. 3. There is significant intrahepatic biliary ductal dilatation throughout the left lobe, likely secondary to obstructing mass lesion near the lawrence hepatis. This is unchanged from 03/20/2017 but has significantly increased from the 01/26/2017 MRCP. 4. 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 Tumor thrombus is suspected. 5. Pulmonary metastases are again seen at the right lung base. 6. Cardiomegaly and hiatal hernia. 7. Moderate to advanced diverticulosis of the left colon without clear CT evidence of acute diverticulitis. 8. Wall thickening throughout the right colon likely represents portal colopathy. This is unchanged. 9. Bilateral nonobstructing renal calculi. 10. Additional findings as above. Electronically signed by: Ryan Nagel M.D. 03/22/2017 12:09 PM Dictated Date/Time: 03/22/2017 11:52 AM Laboratory Results 03/22/17 10:55 Red Blood Count 4.62, Mean Corpuscular Volume 79.4, Mean Corpuscular Hemoglobin 26.8, Mean Corpuscular Hemoglobin Concent 33.8, Neutrophils (%) (Auto) 79.0, Lymphocytes (%) (Auto) 5.6, Monocytes (%) (Auto) 6.8, Eosinophils (%) (Auto) 0.4 , Basophils (%) (Auto) 0.3, Neutrophils # (Auto) 8.45, Lymphocytes # (Auto) 0.60 , Monocytes # (Auto) 0.73, Eosinophils # (Auto) 0.04, Basophils # (Auto) 0.03 03/22/17 10:55 Test 03/22/17 10:55 03/22/17 11:04 03/22/17 11:15 03/22/17 13:01 White Blood Count 10.69 K/uL (4.8-10.8) Red Blood Count 4.62 M/uL (4.7-6.1) Hemoglobin 12.4 g/dL (14.0-18.0) Hematocrit 36.7 % (42-52) Mean Corpuscular Volume 79.4 fL (80-100) Mean Corpuscular Hemoglobin 26.8 pg (25-34) Mean Corpuscular Hemoglobin Concent 33.8 g/dl (32-36) Platelet Count 145 K/uL (130-400) Neutrophils (%) (Auto) 79.0 % Lymphocytes (%) (Auto) 5.6 % Monocytes (%) (Auto) 6.8 % Eosinophils (%) (Auto) 0.4 % Basophils (%) (Auto) 0.3 % Neutrophils # (Auto) 8.45 K/uL (1.4-6.5) Lymphocytes # (Auto) 0.60 K/uL (1.2-3.4) Monocytes # (Auto) 0.73 K/uL (0.11-0.59) Eosinophils # (Auto) 0.04 K/uL (0-0.5) Basophils # (Auto) 0.03 K/uL (0-0.2) RDW Standard Deviation 60.5 fL (36.4-46.3) RDW Coefficient of Variation 21.0 % (11.5-14.5) Immature Granulocyte % (Auto) 7.9 % Immature Granulocyte # (Auto) 0.84 K/uL (0.00-0.02) Platelet Estimate NORMAL Hypochromasia PRESENT Target Cells 1+ Estimated GFR () Estimated GFR (Non- BUN/Creatinine Ratio (10-20) Calcium Level 8.2 mg/dl (8.5-10.1) Total Bilirubin 20.5 mg/dl (0.2-1) Direct Bilirubin 16.0 mg/dl (0-0.2) Aspartate Amino Transf (AST/SGOT) 183 U/L (15-37) Alanine Aminotransferase (ALT/SGPT) 88 U/L (12-78) Alkaline Phosphatase 462 U/L (45-117) Total Protein gm/dl (6.4-8.2) Albumin 2.0 gm/dl (3.4-5.0) Lipase 99 U/L (73-393) Bedside Hemoglobin 15.0 g/dl (14.0-18.0) Bedside Hematocrit 44 % (42-52) Bedside Sodium 132 mEq/L (135-144) Bedside Potassium 4.1 mEq/L (3.3-5.0) Bedside Chloride 99 mEq/L (101-112) Bedside Total CO2 23 mEq/l (24-31) Anion Gap 16.0 mmol/L (16-25) Bedside Blood Urea Nitrogen 20 mg/dl (7-18) Bedside Creatinine 0.8 mg/dl (0.6-1.3) Bedside Glucose (other) 155 mg/dl (70-99) Bedside Ionized Calcium (Fabien) 1.04 mmol/l (1.12-1.32) Ammonia 53.0 umol/L (11-32) Urine Color TIKA Urine Appearance CLEAR (CLEAR) Urine pH 6.5 (4.5-7.5) Urine Specific Zeigler <= 1.005 (1.000-1.030) Urine Protein TRACE (NEG) Urine Glucose (UA) TRACE (NEG) Urine Ketones NEG (NEG) Urine Occult Blood 3+ (NEG) Urine Nitrite NEG (NEG) Urine Bilirubin 3+ (NEG) Urine Urobilinogen NEG (NEG) Urine Leukocyte Esterase NEG (NEG) Labs reviewed by ED physician. Medications Administered Medications (Trade) Dose Ordered Sig/Shashi Route Start Time Stop Time Status Last Admin Dose Admin Sodium Chloride (Nss 500ml) 500 ml @ 999 mls/hr Q31M STAT IV 03/22/17 10:45 03/22/17 11:15 DC 03/22/17 11:16 999 MLS/HR Metoclopramide HCl (Reglan Inj) 10 mg NOW STAT IV 03/22/17 10:45 03/22/17 10:49 DC 03/22/17 11:16 10 MG Hydromorphone HCl (Dilaudid Inj) 1 mg NOW STAT IV 03/22/17 10:45 03/22/17 10:49 DC 03/22/17 11:16 1 MG Hydromorphone HCl (Dilaudid Inj) 1 mg NOW STAT IV 03/22/17 12:17 03/22/17 12:18 DC 03/22/17 12:44 1 MG Ondansetron HCl (Zofran Inj) 4 mg NOW STAT IV 03/22/17 12:17 03/22/17 12:18 DC 03/22/17 12:43 4 MG ED Course 1041: Past medical records reviewed. The patient was evaluated in room C7. A complete history and physical examination was performed. 1045: I spoke to the patient's significant other at this time regarding the patient's condition. She informed me that the patient is a full code and declined hospice yesterday after discharge from the hospital. Ordered Dilaudid Inj 1 mg IV, Reglan Inj 10 mg IV, Sodium Chloride 500 ml @ 999 mls/hr IV. 1214: I reevaluated the patient and he is resting. I discussed the exam findings with him and his and I discussed the treatment plan. They verbalized complete understanding and agreement. He will be evaluated for further treatment. 1217: Ordered Zofran Inj 4 mg IV, Dilaudid Inj 1 mg IV. 1220: I discussed the patients case with TAMMY Valerio. He is going to evaluate the patient for further treatment. 1233: I spoke to TAMMY Tavarez regarding the patient. He wants to speak to the patient about managing his pain as an outpatient. 1314: I spoke to TAMMY Tavarez and he states that the patient will stay for further evaluation under Hospice. Medical Decision Differential diagnosis: Etiologies such as appendicitis, diverticulitis, PUD, biliary pathology, UTI, pancreatitis, obstruction, mesenteric ischemia, aortic pathology, infections, inflammatory bowel disease, renal colic, as well as others were entertained. This is a 56-year-old male who was discharged from Hospital yesterday, who now presents emergency department complaining of generalized abdominal pain. The patient's tells me that he is not quite ready for hospice. He does have elevations in his T bili as well as direct bili. He was sent for CAT scan abdomen and pelvis however he acute process. The patient the option of being discharged home however he would like to be admitted. An IV was established patient was given normal saline bolus along with Dilaudid 2. I did discuss the case with the hospitalist service who agreed to admit the patient patient and are in agreement with the treatment plan. Consults Time Called: 1217 Consulting Physician: TAMMY Valerio Returned Call: 1220 I discussed the patients case with TAMMY Valerio. He is going to evaluate the patient for further treatment. Impression Primary Impression: Generalized abdominal pain Scribe Attestation The scribe's documentation has been prepared under my direction and personally reviewed by me in its entirety. I confirm that the note above accurately reflects all work, treatment, procedures, and medical decision making performed by me. Departure Information Dispostion Being Evaluated By Hospitalist Referrals No Doctor, Assigned (PCP)
[2017-03-22] MEDS ORDERED: OPTIRAY 320 IV PRN (11:00)
[2017-03-22 11:13] LABS: MEAN CORPUSCULAR HGB CONC 33.8 g/dl (32-36)
[2017-03-22 11:17] LABS: ISTAT CREATININE 0.8 mg/dl (0.6-1.3); ISTAT IONIZED CALCIUM 1.04 mmol/l (1.12-1.32)
[2017-03-22 11:46] LABS: HEMATOCRIT 36.7 % (42-52); MEAN CELL VOLUME 79.4 fL (80-100); MEAN CORPUSCULAR HEMOGLOBIN 26.8 pg (25-34); RED BLOOD COUNT 4.62 M/uL (4.7-6.1); WHITE BLOOD COUNT 10.69 K/uL (4.8-10.8)
[2017-03-22 11:53] LABS: PLATELET COUNT 145 K/uL (130-400)
[2017-03-22 11:54] LABS: BASO % 0.3 %; BASO ABS # 0.03 K/uL (0-0.2); COMPLETE YES; EOS % 0.4 %; HYPOCHROMIA PRESENT; IG% 7.9 %; LYMPH % 5.6 %; MONO % 6.8 %; PLT ESTIMATE NORMAL; TARGET CELLS 1+
[2017-03-22 11:55] LABS: ALKALINE PHOSPHATASE 462 U/L (45-117); ALT/SGPT 88 U/L (12-78); AST/SGOT 183 U/L (15-37); BLOOD UREA NITROGEN 18 mg/dl (7-18); CALCIUM 8.2 mg/dl (8.5-10.1); CARBON DIOXIDE 25 mmol/L (21-32); CHLORIDE 100 mmol/L (98-107); GLUCOSE 152 mg/dl (70-99); POTASSIUM 3.9 mmol/L (3.5-5.1); SODIUM 134 mmol/L (136-145)
--- NOTE | 2017-03-22 12:11 | DIAGNOSTIC IMAGING REPORT ---
CT SCAN OF THE ABDOMEN AND PELVIS WITH IV CONTRAST CLINICAL HISTORY: Generalized abdominal pain. Jaundice. Reported history of liver cancer. COMPARISON STUDY: Abdominal CT dated 03/20/2017 and 05/30/2015. MRCP dated 01/16/2017. TECHNIQUE: Following the IV administration of 90 cc of Optiray 320, CT scan of the abdomen and pelvis is performed from the lung bases to the proximal femora. Images are reviewed in the axial, sagittal, and coronal planes. IV contrast was administered without complication. Automated dose control exposure was utilized. CT DOSE: 1258.56 mGy.cm FINDINGS: Lung bases: The heart is large and without pericardial effusion. The coronary arteries are densely calcified. There are 2 pulmonary nodules at the right lung base seen on images #28 and #56. These measure up to 9 mm, are new from 2014, and are consistent with pulmonary metastases. There is no airspace consolidation typical for pneumonia or pleural effusion. There is a small hiatal hernia with esophageal varices. Liver: The contrast-enhanced liver is enlarged, measuring 22 cm in length. The liver is cirrhotic in morphology and heterogeneous in attenuation. There is nodularity of the hepatic surface contour as well as hypertrophy of the left lobe and caudate. Intrahepatic biliary ductal dilatation is again seen in the left lobe. This is unchanged from 03/20/2017. 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 Thrombus is also seen within the superior mesenteric vein on image #177. There are numerous perigastric collateral vessels. There is also recanalization of the periumbilical vein. There are multiple large hepatic mass is seen throughout the right lobe. A conglomerate of masses in segment 7 and 8 below the diaphragm measures approximately 10 x 6 cm in aggregate dimension. A large lesion in hepatic segment 6 measures at least 6.5 cm. There is ill-defined low attenuation soft tissue material within the caudate lobe and near the hepatic hilum, likely representing infiltrative metastatic disease. Gallbladder: There is nonspecific gallbladder wall edema, likely related to cirrhosis and ascites. Spleen: The spleen is markedly enlarged, measuring 21 cm in length. Pancreas: Unremarkable. Adrenal glands: Unremarkable. Kidneys: The contrast enhanced kidneys demonstrate mild cortical atrophy and are without hydronephrosis. The kidneys enhance symmetrically. There is a 10 mm nonobstructing calculus in the upper pole of left kidney. There are at least 4 nonobstructing right renal calculi measuring up to 8 mm. Right renal cysts measure up to 1.5 cm. Abdominal vasculature: The abdominal aorta is normal in course and caliber noting moderate to advanced atherosclerotic calcification. Bowel: There is evidence of previous small bowel anastomosis within the upper ventral pelvis. No bowel obstruction is seen. Wall thickening within the right colon likely represents portal colopathy. There is moderate to advanced diverticulosis of the left colon without CT evidence of acute diverticulitis. The appendix is well-visualized and normal. Peritoneum: There are numerous omental collateral vessels. No intraperitoneal free air is seen. There is a small to moderate volume of abdominopelvic ascites, not significantly changed from 03/20/2017. There is an ascitic fluid containing umbilical hernia. Lymphadenopathy: None. Pelvic viscera: The bladder, prostate, and seminal vesicles are normal as visualized. There is a small fat-containing right inguinal hernia. Skeletal structures: The skeletal structures appear osteopenic. No lytic or blastic lesions are seen. There is a healed right anterior rib fracture. IMPRESSION: 1. Cirrhotic liver morphology with evidence of portal hypertension including a small to moderate volume of abdominal ascites, marked splenomegaly, omental collaterals, and esophageal varices. 2. Large infiltrative mass lesions throughout the liver involving predominantly the right lobe in the lawrence hepatis have not significantly changed in appearance from study performed 2 days previously. 3. There is significant intrahepatic biliary ductal dilatation throughout the left lobe, likely secondary to obstructing mass lesion near the lawrence hepatis. This is unchanged from 03/20/2017 but has significantly increased from the 01/26/2017 MRCP. 4. 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 Tumor thrombus is suspected. 5. Pulmonary metastases are again seen at the right lung base. 6. Cardiomegaly and hiatal hernia. 7. Moderate to advanced diverticulosis of the left colon without clear CT evidence of acute diverticulitis. 8. Wall thickening throughout the right colon likely represents portal colopathy. This is unchanged. 9. Bilateral nonobstructing renal calculi. 10. Additional findings as above. Electronically signed by: Ryan Nagel M.D. 03/22/2017 12:09 PM Dictated Date/Time: 03/22/2017 11:52 AM
[2017-03-22] MEDS ORDERED: ONDANSETRON INJ 2 MG/ML 2 ML VIAL IV STA (12:17)
[2017-03-22 12:45] VITALS: O2SAT 94; Ht 172.7 cm; Wt 97.6 kg
[2017-03-22 13:22] LABS: MANUAL MICROSCOPIC REQUIRED? YES; URINE APPEARANCE CLEAR (CLEAR); URINE COLOR AMBER; URINE NITRITE NEG (NEG); URINE PH 6.5 (4.5-7.5); URINE SPECIFIC GRAVITY <= 1.005 (1.000-1.030); UROBILINOGEN NEG (NEG)
[2017-03-22] MEDS ORDERED: OXYCODONE HCL 5 MG/0.25 ML UDP PO PRN (13:30)
[2017-03-22] MEDS ORDERED: ZOLPIDEM TARTRATE 5 MG TAB PO PRN (13:30)
[2017-03-22] MEDS ORDERED: HYDROmorphone INJ 1 MG/ML SYR IV PRN (13:30)
--- NOTE | 2017-03-22 13:35 | History and Physical ---
History & Physical Date & Time of Service: March 22, 2017 at 13:24 Chief Complaint: Sob, Stomach Pains-Discharged Yesterday Primary Care Physician: Rolando Shoemaker M.D. History of Present Illness 56 y/o male w/ h/o metastatic liver cancer discharged from [facility] w/o further therapy 2/2 advanced disease and told ~3 wks 5 wks ago presents today following brief hospital admission for intractable diarrhea for worsening abdominal pain. Abd pain is aching, diffuse and did not improve with home percocet dosing. It is accompanied by mild intermittent nausea and fatigue, as well as a subjective worsening of his jaundice. He reports no changes to his diet or activity since discharge but states he has a decreased appetite for the last day. He states that he 'feels (he) doesn't have much time left on this Earth". Previously, it was discussed that he has hospice set up through his primary care but did not want to start on it. After discussing with the patient, he now wants to go the palliative route. I have discussed w/ monica and Rose (S/O) regarding potential course of evaluation and treatment for his abdominal pain including lab studies , imaging and invasive testing, all of which he does not want. He reiterates that he is DNR and just wants to be comfortable. I inquired re: continued lovenox, and he states he will think about it, as he feels that lovenox has helped with the LE pain from the DVT. His pain is well controlled on 2mg IV dilaudid. I have called Dr. Reyna's office - he is on vacation, but Rhoda ( nurse) has executed the previously set up order for hospice w/ [facility], which will likely be set up by tomorrow at the earliest. At this time, I think it would be reasonable to admit the patient to inpatient hospice at [facility] until such a time that his symptoms could be better controlled at home in the setting he prefers. He understands the course of action and that it may shorten his lifespan in return for comfort and quality, and agrees with the course of action. Past Medical/Surgical History Medical Problems: (1) Bladder cancer Status: Resolved (2) Bursitis Status: Chronic (3) CALCULUS OF KIDNEY Status: Resolved (4) CALCULUS OF URETER Status: Resolved (5) Chronic Hepatitis C W/O Hepatic Coma Status: Chronic (6) Diverticulitis Colon (W/O Ment Of Hemorrhage) Status: Resolved (7) Esophageal Reflux Status: Chronic (8) HYPERTENSION NOS Status: Chronic (9) Lumbar Disc Displacement Status: Chronic (10) Obesity Status: Chronic (11) Rheumatoid arthritis Status: Chronic (12) Rheumatoid arthritis of upper arm Status: Resolved Family History Cancer Gallbladder disease Hypertension Kidney disease Kidney stones Lung disease Reviewed in EHR Social History Smoking Status: Current Every Day Smoker Smokeless Tobacco Use: No Alcohol Use: none Drug Use: none Marital Status: Occupational Status: employed Immunizations History of Influenza Vaccine: Yes History of Tetanus Vaccine?: UTD History of Pneumococcal: Yes History of Hepatitis B Vaccine: No Multi-Drug Resistant Organisms History of MDRO: No Allergies Coded Allergies: No Known Allergies (Verified , 08/25/16) Home Medications Scheduled Cholecalciferol (Vitamin D3), 5,000 INTER.UNIT PO DAILY Coenzyme Q10 (Ubidecarenone) (Co Q 10), 100 MG PO BID Enoxaparin (Enoxaparin Sodium), 90 MG SQ Q12 Ferrous Sulfate (Iron), 1 TAB PO BID Lidocaine (Lidocaine), 1 PATCH TD QAM Lisinopril (Prinivil), 10 MG PO DAILY Methylprednisolone (Methylprednisolone), 4 MG PO DAILY Oxycodone/Acetaminophen 10MG/325MG (Percocet 10MG/325MG), 1 TAB PO QID Pancrelipase (Lipase-Protease- (Pancreaze), 2 CAP PO AC Pantoprazole (Pantoprazole Sodium), 40 MG PO BID Potassium Chloride (Potassium Chloride ER), 1 TAB PO TID Scheduled PRN Urbhqbg-Ydftqiyuywgpo-Ktwcnwnk (Headache Relief), 2 TABS PO Q6 PRN for Pain Oxycodone Hcl (Oxycodone Hcl), 1 TAB PO QID PRN for Pain Review of Systems Constitutional: + weight loss, No chills, No fever Eyes: No discharge, No eye pain, No worsening of vision ENT: No hearing loss, No sore throat, No unusual epistaxis Respiratory: + dyspnea on exertion, + shortness of breath, No cough, No dyspnea at rest, No sputum, No wheezing Cardiovascular: No chest pain, No edema, No orthopnea, No palpitations Abdomen: + nausea, + pain, No constipation, No diarrhea, No vomiting Neurologic: + numbness/tingling, No balance problems, No memory loss Psychiatric: + anxiety, No depression symptoms, No substance abuse Integumentary: + color change, No itch, No new/changing skin lesions, No rash Physical Exam Vital Signs Date Time Temp Pulse Resp B/P Pulse Ox O2 Delivery O2 Flow Rate FiO2 03/22/17 12:53 89 03/22/17 12:00 82 16 112/68 94 Room Air 03/22/17 11:26 96 Room Air 03/22/17 10:30 36.4 102 20 119/74 92 Room Air General Appearance: WD/WN, + moderate distress (icteric, similar to previous) Head: normocephalic, atraumatic Eyes: PERRL, EOMI ENT: normal ENT inspection, hearing grossly normal, TMs normal, pharynx normal Respiratory/Chest: chest non-tender, lungs clear, normal breath sounds, no respiratory distress Cardiovascular: regular rate, rhythm, no edema, no gallop, no murmur Abdomen/GI: + tenderness (diffusely), + abnormal bowel sounds (decreased ( muffled)), + distended Skin: + jaundice (stable from previous) Diagnostics Laboratory Results Results Past 24 Hours Test 03/22/17 10:55 03/22/17 11:04 03/22/17 11:15 03/22/17 13:01 Range/Units White Blood Count 10.69 4.8-10.8 K/uL Red Blood Count 4.62 4.7-6.1 M/uL Hemoglobin 12.4 14.0-18.0 g/dL Hematocrit 36.7 42-52 % Mean Corpuscular Volume 79.4 80-100 fL Mean Corpuscular Hemoglobin 26.8 25-34 pg Mean Corpuscular Hemoglobin Concent 33.8 32-36 g/dl Platelet Count 145 130-400 K/uL Neutrophils (%) (Auto) 79.0 % Lymphocytes (%) (Auto) 5.6 % Monocytes (%) (Auto) 6.8 % Eosinophils (%) (Auto) 0.4 % Basophils (%) (Auto) 0.3 % Neutrophils # (Auto) 8.45 1.4-6.5 K/uL Lymphocytes # (Auto) 0.60 1.2-3.4 K/uL Monocytes # (Auto) 0.73 0.11-0.59 K/uL Eosinophils # (Auto) 0.04 0-0.5 K/uL Basophils # (Auto) 0.03 0-0.2 K/uL RDW Standard Deviation 60.5 36.4-46.3 fL RDW Coefficient of Variation 21.0 11.5-14.5 % Immature Granulocyte % (Auto) 7.9 % Immature Granulocyte # (Auto) 0.84 0.00-0.02 K/uL Platelet Estimate NORMAL Hypochromasia PRESENT Target Cells 1+ Sodium Level 134 136-145 mmol/L Potassium Level 3.9 3.5-5.1 mmol/L Chloride Level 100 98-107 mmol/L Carbon Dioxide Level 25 21-32 mmol/L Anion Gap 9.0 16.0 16-25 mmol/L Blood Urea Nitrogen 18 7-18 mg/dl Creatinine 0.60-1.40 mg/dl Estimated GFR () Estimated GFR (Non- BUN/Creatinine Ratio 10-20 Random Glucose 152 70-99 mg/dl Calcium Level 8.2 8.5-10.1 mg/dl Total Bilirubin 20.5 0.2-1 mg/dl Direct Bilirubin 16.0 0-0.2 mg/dl Aspartate Amino Transf (AST/SGOT) 183 15-37 U/L Alanine Aminotransferase (ALT/SGPT) 88 12-78 U/L Alkaline Phosphatase 462 45-117 U/L Total Protein 6.4-8.2 gm/dl Albumin 2.0 3.4-5.0 gm/dl Lipase 99 73-393 U/L Bedside Hemoglobin 15.0 14.0-18.0 g/dl Bedside Hematocrit 44 42-52 % Bedside Sodium 132 135-144 mEq/L Bedside Potassium 4.1 3.3-5.0 mEq/L Bedside Chloride 99 101-112 mEq/L Bedside Total CO2 23 24-31 mEq/l Bedside Blood Urea Nitrogen 20 7-18 mg/dl Bedside Creatinine 0.8 0.6-1.3 mg/dl Bedside Glucose (other) 155 70-99 mg/dl Bedside Ionized Calcium (Fabien) 1.04 1.12-1.32 mmol/l Ammonia 53.0 11-32 umol/L Impression Assessment and Plan (1) Generalized abdominal pain Assessment & Plan: - palliative care consult - dilaudid and roxicodone for pain control - zofran for nausea - ambien qHS for sleep PRN - single room - full diet - home hospice and PCP office aware - case mgmt consulted re: inpatient hospice admission for transition to home hospice - defer vital signs and invasive examination (2) Hepatocellular carcinoma Assessment & Plan: - history reviewed in detail - transition to hospice (3) Hyperbilirubinemia per patient, will not check further lab studies 2/2 hospice Level of Care Hospice Advanced Directives Existing Advance Directive: Yes Existing Living Will: Yes Existing Power of Healthcare Administration Internship: Yes Existing Health Care Proxy: Yes Resuscitation Status DO NOT RESUSCITATE VTE Prophylaxis VTE Risk Assessment Done? Y/N: Yes Risk Level: High Given or contraindicated: Enoxaparin (Lovenox)SQ Note Approximately 1 hour spent with the patient > 50% in coordination of care including contacting PCP, orchestrating w/ outpatient hospice and inpatient case management and addressing patient concerns re: course of care. Additional Copies To Rolando Shoemaker M.D.
[2017-03-22] MEDS ORDERED: ONDANSETRON 4MG OD TAB PO PRN (13:45)
[2017-03-22 13:51] LABS: REVIEW REQ? NO; URINE BILIRUBIN 3+ (NEG)
[2017-03-22 14:14] LABS: URINE RBC >30 /hpf (0-4)
[2017-03-22 14:15] LABS: URINE BACTERIA NEG (NEG); URINE WBC 0 /hpf (0-5)
[2017-03-22] MEDS ORDERED: HYDROmorphone INJ 1 MG/ML SYR ONE (15:14)
[2017-03-22 15:29] VITALS: O2SAT 92
[2017-03-22] MEDS ORDERED: POLYETHYLENE (MIRALAX) 17 GM PACK PO SCH (16:01)
[2017-03-22] MEDS ORDERED: ENOXAPARIN 100 MG/1ML SYR SQ SCH (16:15)
[2017-03-22 17:23] LABS: INR 2.5 (0.9-1.1); PARTIAL THROMBOPLASTIN RATIO 1.8; PROTHROMBIN TIME (PATIENT) 27.3 SECONDS (9.0-12.0)
[2017-03-22] MEDS ORDERED: HYDROmorphone HCL 2 MG TAB PO PRN (17:30)
[2017-03-22] MEDS: HYDROmorphone INJ 1 MG/ML SYR IV PRN ×2 (17:48→22:21)
[2017-03-22] MEDS: HYDROmorphone HCL 2 MG TAB PO SCH (19:49)
[2017-03-23] MEDS: HYDROmorphone INJ 1 MG/ML SYR IV PRN ×2 (00:47→06:43)
[2017-03-23 01:37] LABS: REFERENCE QUEST TEST REPORT
--- NOTE | 2017-03-23 07:17 | Family Medicine Progress Note ---
Progress Note Date of Service March 23, 2017. Subjective Pt evaluation today including: conversation w/ patient, physical exam, chart review, lab review The patient was seen and examined at bedside. Pt received 4x 1mg IV injections of dilautid. Pt was complaining of pain when rounding in the morning. Pt mentioned that his shoulder hurt to Dr. Lucio on mid morning rounds. Pt would like more pain medication. Pt also did not want any more blood draws or lovenox injections. Pt understood the implications of this decision. Plan of care was described to the patient and all questions were answered. Constitutional: No chills, No fever, No sweats Respiratory: No cough, No shortness of breath, No sputum, No wheezing Cardiovascular: No chest pain Abdomen: No diarrhea, No nausea, No vomiting Musculoskeletal: No joint pain Objective Physical Exam General Appearance: WD/WN, no apparent distress, + pertinent finding ( jaundiced with scleral icterus) Eyes: EOMI Respiratory/Chest: chest non-tender, lungs clear, normal breath sounds, no respiratory distress, no accessory muscle use Cardiovascular: regular rate, rhythm, no edema, no gallop, no JVD, no murmur Abdomen: normal bowel sounds, non tender, soft, no organomegaly, no pulsatile mass, + pertinent finding Extremities: no calf tenderness, + pertinent finding (left shoulder pain on left shoulder raise) 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 Readmit 24 hours after discharge for abdominal pain. After extensive discussion with the patient it was agreed that our goals would be pain control. We also discussed the risks of holding his home medications, especially his Lovenox for his LLE DVT. Pt wants to have good BM's and will trial Miralax once a day. Pt's pain was not well controlled and we added a 12.5mcg Fentanyl patch. Generalized abdominal pain - palliative care consult, appreciate recs. - Dilaudid 4mg PO Scheduled, Fentanyl 12.5mcg, 4mg Dilautid PRN for breakthrough pain, 1mg Dilautid IV for severe breakthrough pain. - zofran for nausea - ambien qHS for sleep PRN - single room - full diet - home hospice and PCP office aware - case mgmt consulted re: inpatient hospice admission for transition to home hospice - defer vital signs and invasive examination Hepatocellular carcinoma Assessment & Plan: - history reviewed in detail - transition to hospice Right Shoulder Pain - X-ray: Productive degenerative change is noted at the acromioclavicular joint. - Consider AC joint injection for pain relief. Hyperbilirubinemia per patient, will not check further lab studies 2/2 hospice LLE DVT: Pt is deferring anticoagulation therapy. Dispo: Will go home on home hospice, DNR Resident Involvement: Resident Care Provided Care Provided: Adult Hospital Medicine History Resident Physician Supervision Note: I was present with Dr. Holder during the history and exam. I discussed the case with the resident and agree with the findings and plan as documented in the note. Any exceptions or clarifications are listed here. Pt seen and examined at bedside. Initially patient reports poorly controlled pain overnight w/o asking for PO medication. Subsequently, c/o new onset sedation which concerns him re: elevated NH3 levels similarly to previous but onset fairly rapidly following administration of 25mcg fentanyl patch. Reviewed regarding options to address concern for hyperammonemia w/ patient - does not wish further lab studies and would not want lactulose administration for modification. Agreeable with alteration of pain management regimen for less sedation. General Appearance: other (somewhat somnolent but coherent, jaundice remains stable) Eye Exam: bilateral eye other (icterus) Respiratory: chest non-tender, lungs clear, normal breath sounds, no respiratory distress Cardiovascular: normal peripheral pulses, regular rate, rhythm, no edema, no murmur Assessment/Plan 56 y/o male w/ terminal HCCA presently on comfort/hospice care Generalized abdominal pain - will transition back to 12.5mcg patch for pain control to balance sedation and pain control Right shoulder pain - AC joint injection preferred by patient to attempt to obtain relief for frozen shoulder. XR shows arthritis of same, would likely benefit. Reviewed risk/benefit in detail HCCA - transition to outpatient hospice, likely in AM Palliative care consult in place, input appreciated.
[2017-03-23] MEDS: HYDROmorphone HCL 2 MG TAB PO SCH ×5 (08:25→23:34)
[2017-03-23] MEDS: POLYETHYLENE (MIRALAX) 17 GM PACK PO SCH (08:29)
[2017-03-23] MEDS ORDERED: FENTANYL PATCH REMOVE & WASTE SCH ×2 (10:44→16:29)
[2017-03-23] MEDS ORDERED: FENTANYL 25 MCG/HR TDSY TD SCH (10:45)
--- NOTE | 2017-03-23 12:15 | DIAGNOSTIC IMAGING REPORT ---
RIGHT SHOULDER 3 VIEWS CLINICAL HISTORY: Right shoulder pain. FINDINGS: 3 portable views of the right shoulder are compared to study dated 02/12/2009. The skeletal structures are osteopenic. No fracture or dislocation is seen. Productive degenerative change is noted at the acromioclavicular joint. The glenohumeral articulation is preserved. The overlying soft tissues are within normal limits. Emphysematous change and nodularity is suggested in the partially imaged right lung. IMPRESSION: Osteopenia and arthritic change as above. No acute bony abnormality is seen in the right shoulder. Electronically signed by: Ryan Nagel M.D. 03/23/2017 12:14 PM Dictated Date/Time: 03/23/2017 12:12 PM
[2017-03-23] MEDS ORDERED: CHECK FENTANYL PATCH PLACEMENT SCH (16:00)
[2017-03-23] MEDS ORDERED: NURSING VERBAL MED ORDER ONE (16:15)
[2017-03-23] MEDS ORDERED: FENTANYL 12 MCG/HR TDSY TD SCH (16:30)
[2017-03-23] MEDS: CHECK FENTANYL PATCH PLACEMENT SCH (23:34)
[2017-03-24] MEDS: HYDROmorphone INJ 1 MG/ML SYR IV PRN ×2 (00:02→04:59)
[2017-03-24 00:16] VITALS: BP 136/79; PULSE 106; TEMP 36.7; O2SAT 94
[2017-03-24] MEDS: HYDROmorphone HCL 2 MG TAB PO SCH ×2 (04:00→07:42)
--- NOTE | 2017-03-24 07:24 | Family Medicine Progress Note ---
Progress Note Date of Service March 24, 2017. Subjective Pt evaluation today including: conversation w/ patient, physical exam, chart review The patient was seen and examined at bedside. Pt reports feeling "out of it" yesterday evening. According to nursing charts pt was very drowsy and stating he saw books on the floor. He was started on a 25mcg Fentanyl patch that was later changed to a 12.5mcg Fentanyl Patch. This morning patient is alert awake and oriented. His medications were held. Pt states that he is feeling great. Denies having any pain. He is resting comfortably. Pt is ready for discharge today. Plan of care was described to the patient and all questions were answered. Constitutional: No chills, No fever, No sweats, No weight loss Cardiovascular: No chest pain Abdomen: No vomiting Musculoskeletal: No joint pain Objective Physical Exam General Appearance: WD/WN, no apparent distress Eyes: + pertinent finding (scleral icterus, ) Respiratory/Chest: chest non-tender, lungs clear, normal breath sounds, no respiratory distress, no accessory muscle use Cardiovascular: regular rate, rhythm, no edema, no gallop, no JVD, no murmur Abdomen: normal bowel sounds, soft Extremities: + pertinent finding (Significant ascites present over abdomen. FROM of uppe and lower extremities. Posterior calf tenderness bilaterally. ) Neurologic/Psychiatric: no motor/sensory deficits, alert, normal mood/affect, oriented x 3 Skin: + pertinent finding (significant full body jaundic) Assessment and Plan 56M presenting with abdominal pain that is interested in end of life care due to his liver cancer. Pt was seen by the [facility] in [place] and his cancer was refractory to chemo and radiation. Pt was recently discharged for abdominal pain and quick GI transit. After extensive discussion with the patient it was agreed that our goals would be pain control and we would discontinue all medications. We also discussed the risks of holding his home medications, especially his Lovenox for his LLE DVT. We added a 12.5mcg Fentanyl patch. Pt was discharged with Rx for Fentanyl Patch and 20 pills of 4mg of Dilautid. Generalized abdominal pain - Dilaudid 4mg PO Scheduled, Fentanyl 12.5mcg, 4mg Dilautid PRN for breakthrough pain, 1mg Dilautid IV for severe breakthrough pain. - zofran for nausea - ambien qHS for sleep PRN - single room - full diet - home hospice and PCP office aware - case mgmt consulted re: inpatient hospice admission for transition to home hospice - defer vital signs and invasive examination Hepatocellular carcinoma - history reviewed in detail - transition to hospice Right Shoulder Pain - X-ray: Productive degenerative change is noted at the acromioclavicular joint. - Consider AC joint injection for pain relief. Hyperbilirubinemia per patient, will not check further lab studies 2/2 hospice LLE DVT: Pt is deferring anticoagulation therapy. Dispo: Will go home on home hospice, DNR Resident Involvement: Resident Care Provided Care Provided: Adult Hospital Medicine History Resident Physician Supervision Note: I was present with Dr. Sosa during the history and exam. I discussed the case with the resident and agree with the findings and plan as documented in the note. Any exceptions or clarifications are listed here. Significant improvement in pain, both in the R shoulder and abdomen on the 12 mcg fentanyl patch. Orientation and confusion has improved to baseline. Would like to return home on hospice. General Appearance: WD/WN, no apparent distress, obese Eye Exam: bilateral eye other (icterus) Respiratory: chest non-tender, lungs clear, normal breath sounds, no respiratory distress Cardiovascular: normal peripheral pulses, regular rate, rhythm, no murmur Gastrointestinal: distended Assessment/Plan 56 y/o male w/ terminal HCCA presently on comfort/hospice care Generalized abdominal pain - continue 12mcg fentanyl patch w/ oxycodone/APAP for breakthrough R shoulder pain - resolved HCCA - transition to outpatient hospice today Palliative care consult appreciated.
[2017-03-24] MEDS: POLYETHYLENE (MIRALAX) 17 GM PACK PO SCH (07:41)
[2017-03-24] MEDS: CHECK FENTANYL PATCH PLACEMENT SCH (08:19)
[2017-03-24] MEDS ORDERED: HYDR2TAB3 PO (10:14)
[2017-03-24] MEDS ORDERED: DRGTP12 TD (10:14)
--- NOTE | 2017-03-24 10:21 | Discharge Instructions ---
Discharge Instructions Date of Service March 24, 2017. Admission Reason for Admission: Generalized Abdominal Pain, Hepatocellular Carcino Discharge Discharge Diagnosis / Problem: Abdominal Pain Discharge Goals Goal(s): Decrease discomfort Activity Recommendations Activity Limitations: resume your previous activity . Instructions / Follow-Up Instructions / Follow-Up You have prescribed Hydromorphone 4mg tablets for pain control. Take these for any episodes of breakthrough pain. You have also been prescribed a Fentanyl patch for pain. Your Fentanyl patch should be changed every 3 days. We recommend stopping all of your home medications including the Vitamin D and the Coenzyme Q10. The goals of care now are to increase comfort. You may restart the PancreLipase with meals if you are experiencing increased frequency of bowel movement. You may restart the Pantoprazole if you are experiencing heartburn. Current Hospital Diet Patient's current hospital diet: Regular Diet Discharge Diet Recommended Diet: Regular Diet Pending Studies Studies pending at discharge: no Medical Emergencies . Who to Call and When: Medical Emergencies: If at any time you feel your situation is an emergency, please call 911 immediately. . Non-Emergent Contact Non-Emergency issues call your: Primary Care Provider . . "Provider Documentation" section prepared by Jeremy Sosa. . VTE Core Measure Inpt VTE Proph given/why not?: Treatment not indicated (Palliative Care) Resident Involvement: Resident Care Provided Care Provided: Adult Hospital Medicine
[2017-03-24 10:32] VITALS: BP 136/79; PULSE 106; TEMP 36.7; O2SAT 94
--- NOTE | 2017-03-24 13:23 | Palliative Care Consultation ---
Consultation Date of Consultation: March 23, 2017. Requesting Physician: Dr. Lucio Attending Physician: Dr. Lucio Reason for Consultation: Hospice, POLST History of Present Illness This 56 year old male patient presented to the ED yesterday with intractable abdominal pain. This gentleman has metastatic hepatocellular adenocarcinoma, disease worsening despite treatment. [facility] from [facility] [place] [facility] weeks ago with a prognosis of 3 weeks to live. He has had several visits to [facility] with diarrhea and severe abdominal pain. His pain is being managed by primary team. Patient was resistant to transitioning to hospice care , but now expresses that he is. Palliative care consulted to do POLST form and coordinate with hospice. I met with the patient in room 422. He is drowsy but awake and oriented. He stated, "I know the outcome of this. I guess my time is coming soon." His goal is to get home with his and son, to be comfortable with an acceptable pain level, and to stay out of the hospital. He requests to go home on hospice. His and son will be there with him almost 23/05. Patient is still able to ambulate and maintain a decent amount of independent. He rates his pain at this time at 9/10, but is clearly dozing off here and there and in no distress. Just had a fentanyl patch added to his regimen. We discussed and filled out a POLST form as follows: DNR/DNI, comfort measures only, antibiotics with comfort as the goal, no artificial hydration/nutrition. Past Medical/Surgical History Medical History: liver cancer diverticulitis kidney stones hepatitis C GERD Htn Bladder cancer Rheumatoid arthritis Social History Smoking Status: Former Smoker History of Alcohol Use: No Drug Use: none Marital Status: Occupation Status: employed Review of Systems Constitutional: + weakness Respiratory: No dyspnea on exertion, No shortness of breath Cardiac: No chest pain, No edema Abdomen: + pain, No nausea, No vomiting Male : No problem reported Psychiatric: No anxiety Allergies Coded Allergies: No Known Allergies (Verified , 08/25/16) Medications Current Inpatient Medications Medications (Trade) Dose Ordered Sig/Shashi Route Start Time Stop Time Status Last Admin Dose Admin Ioversol (Optiray 320) 100 ml UD PRN IV 03/22/17 11:00 03/26/17 10:59 Zolpidem Tartrate (Ambien Tab) 5 mg HSZ PRN PO 03/22/17 13:30 6/22/17 13:29 Ondansetron HCl (Zofran Odt) 4 mg Q6H PRN PO 03/22/17 13:45 04/21/17 13:44 Polyethylene (Miralax Powder Packet) 17 gm DAILY PO 03/23/17 08:00 04/22/17 07:59 03/23/17 08:29 17 GM Hydromorphone HCl (Dilaudid Inj) 1 mg Q2H PRN IV 03/22/17 18:00 04/05/17 17:59 03/23/17 06:43 1 MG Hydromorphone HCl (Dilaudid Tab) 4 mg Q4HWA PO 03/22/17 20:00 04/05/17 19:59 03/23/17 08:25 4 MG Hydromorphone HCl (Dilaudid Tab) 4 mg Q4 PRN PO 03/22/17 17:30 04/05/17 17:29 Fentanyl (Duragesic Patch) 25 mcg Q3D@0900 TD 03/23/17 10:45 04/06/17 10:44 03/23/17 10:44 25 MCG Miscellaneous (Fentanyl Patch Remove & Waste) 1 ea Q3D@0859 N/A 03/23/17 10:44 04/22/17 10:43 Miscellaneous Information (Check Fentanyl Patch Placement) 1 ea QS N/A 03/23/17 16:00 04/22/17 15:59 Physical Exam Date Time Temp Pulse Resp B/P Pulse Ox O2 Delivery O2 Flow Rate FiO2 03/23/17 00:00 Room Air 03/22/17 16:00 Room Air 03/22/17 15:29 96 16 120/60 92 03/22/17 14:00 98 16 124/74 94 Room Air 03/22/17 12:53 89 03/22/17 12:45 94 Room Air 03/22/17 12:00 82 16 112/68 94 Room Air 03/22/17 11:26 96 Room Air General Appearance: no apparent distress ENT: hearing grossly normal Neck: supple, no JVD Respiratory: lungs clear, no respiratory distress, no accessory muscle use Cardiovascular: regular rate, rhythm, + normal peripheral pulses Abdomen: normal bowel sounds, + distended, + tenderness Neurologic/Psychiatric: oriented x 3, + pertinent finding (awake but drowsy, dozing off occasionally) Skin: + jaundice Laboratory Results Last 24 Hours Test 03/22/17 13:01 03/22/17 16:39 Urine Color TIKA Urine Appearance CLEAR Urine pH 6.5 Urine Specific [place] <= 1.005 Urine Protein TRACE Urine Glucose (UA) TRACE Urine Ketones NEG Urine Occult Blood 3+ Urine Nitrite NEG Urine Bilirubin 3+ Urine Urobilinogen NEG Urine Leukocyte Esterase NEG Urine RBC >30 /hpf Urine WBC 0 /hpf Urine Epithelial Cells 5-10 /lpf Urine Bacteria NEG Prothrombin Time 27.3 SECONDS Prothromb Time International Ratio 2.5 Activated Partial Thromboplast Time 46.7 SECONDS Partial Thromboplastin Ratio 1.8 Assessment & Plan Palliative Performance Scale: 50 % Problem list: Intractable abdominal pain Hyperbilirubinemia hepatocellular carcinoma Jaundice Ascites Goals of care (Z51.5) Palliative care plan: -POLST form complete as follows: DNR/DNI, [employer], abx with comfort as the goal, no artificial hydration/nutrition. -Patient's , Rose Chan, is POA and surrogate decision maker. -Home with hospice once pain control achieved. -I called , but no answer. Please contact me with any further palliative care needs.
--- NOTE | 2017-03-24 18:16 | Discharge Summary ---
Discharge Summary Date of Service March 24, 2017. (Jeremy Sosa M.D.) Discharge Summary Admission Date: March 22, 2017 at 13:24 Discharge Date: March 24, 2017 Discharge Disposition: Home with services (palliative care) Principal Diagnosis: Abdominal Pain 2/2 Hepatocellular Carcinoma Problems/Secondary Diagnoses: (1) Bursitis Status: Chronic (2) Chronic Hepatitis C W/O Hepatic Coma Status: Chronic (3) Esophageal Reflux Status: Chronic (4) HYPERTENSION NOS Status: Chronic (5) Lumbar Disc Displacement Status: Chronic (6) Obesity Status: Chronic (7) Rheumatoid arthritis Status: Chronic Immunizations: Have You Had Influenza Vaccine: Yes History of Tetanus Vaccine?: UTD History of Pneumococcal: Yes History of Hepatitis B Vaccine: No (Jeremy Sosa M.D.) Medication Reconciliation New Medications: Fentanyl (Fentanyl) 12 Mcg Tdsy 12 MCG TD Q3D@1630 for 30 Days, #10 Hydromorphone HCl (Hydromorphone HCl) 2 Mg Tab 4 MG PO Q4 PRN for Pain, #25 TAB Continued Medications: Szdafzk-Cyrmwpiuianyd-Smblnegi (Headache Relief) 1 Tab Tab 2 TABS PO Q6 PRN for Pain Lidocaine (Lidocaine) 1 Patch Tdsy 1 PATCH TD QAM for 7 Days Oxycodone Hcl (Oxycodone Hcl) 10 Mg Tab 1 TAB PO QID PRN for Pain, #30 TAB Oxycodone/Acetaminophen 10MG/325MG (Percocet 10MG/325MG) Tab 1 TAB PO QID for Pain, TAB Discontinued Medications: Cholecalciferol (Vitamin D3) 1,000 Unit Tab 5000 INTER.UNIT PO DAILY for 90 Days, TAB 3 Refills Coenzyme Q10 (Ubidecarenone) (Co Q 10) 100 Mg Cap 100 MG PO BID Enoxaparin (Enoxaparin Sodium) 100 Mg/Ml Inj 90 MG SQ Q12 for 30 Days, #60 PEN 1 Refill Ferrous Sulfate (Iron) Unknown Strength Tab 1 TAB PO BID IRON D.... UNSURE OF THE NAME.. GETS FROM [facility]. Lisinopril (Prinivil) 10 Mg Tab 10 MG PO DAILY, TAB Methylprednisolone (Methylprednisolone) 4 Mg Tab 4 MG PO DAILY Pancrelipase (Lipase-Protease- (Pancreaze) 1 Cap Cap 2 CAP PO AC for 15 Days, #90 CAP 1 Refill Pantoprazole (Pantoprazole Sodium) 40 Mg Tab 40 MG PO BID Potassium Chloride (Potassium Chloride ER) 20 Meq Tab 1 TAB PO TID Discharge Exam Subjective The patient was seen and examined at bedside. Pt reports feeling "out of it" yesterday evening. According to nursing charts pt was very drowsy and stating he saw books on the floor. He was started on a 25mcg Fentanyl patch that was later changed to a 12.5mcg Fentanyl Patch. This morning patient is alert awake and oriented. His medications were held. Pt states that he is feeling great. Denies having any pain. He is resting comfortably. Pt is ready for discharge today. Plan of care was described to the patient and all questions were answered. Constitutional: No chills, No fever, No sweats, No weight loss Cardiovascular: No chest pain Abdomen: No vomiting Musculoskeletal: No joint pain Physical Exam General Appearance: WD/WN, no apparent distress Eyes: + pertinent finding (scleral icterus, ) Respiratory/Chest: chest non-tender, lungs clear, normal breath sounds, no respiratory distress, no accessory muscle use Cardiovascular: regular rate, rhythm, no edema, no gallop, no JVD, no murmur Abdomen: normal bowel sounds, soft Extremities: + pertinent finding (Significant ascites present over abdomen. FROM of uppe and lower extremities. Posterior calf tenderness bilaterally. ) Neurologic/Psychiatric: no motor/sensory deficits, alert, normal mood/affect, oriented x 3 Skin: + pertinent finding (significant full body jaundic) (Jeremy Sosa M.D.) Hospital Course 56M presenting with abdominal pain that is interested in end of life care due to his liver cancer. Pt was seen by the [facility] in [place] and his cancer was refractory to chemo and radiation. Pt was recently discharged for abdominal pain and quick GI transit. After extensive discussion with the patient it was agreed that our goals would be pain control and we would discontinue all medications. We also discussed the risks of holding his home medications, especially his Lovenox for his LLE DVT. We added a 12.5mcg Fentanyl patch and PO Dilaudid. Pain was well controlled. Pt was discharged with Rx for Fentanyl Patch and 20 pills of 4mg of Dilautid. Total Time Spent: Greater than 30 minutes This includes examination of the patient, discharge planning, medication reconciliation, and communication with other providers. (Jeremy Sosa M.D.) Discharge Instructions Please refer to the electronic Patient Visit Report (Discharge Instructions) for additional information. (Jeremy Sosa M.D.) Additional Copies To Rolando Shoemaker M.D. Resident Involvement: Resident Care Provided Care Provided: [facility] (Jeremy Sosa M.D.) Assessment/Plan Resident Physician Supervision Note: I was present with Dr. Sosa during the history and exam. I discussed the case with the resident and agree with the findings and plan as documented in the note. Any exceptions or clarifications are listed here. Documented By: Christos Lucio For full attending assessment and documentation, see accompanying note from day of discharge. In brief: Mr. Chan is a 56 y/o male w/ terminal HCCA presently on comfort/hospice care Generalized abdominal pain - continue 12mcg fentanyl patch w/ oxycodone/APAP for breakthrough R shoulder pain - resolved, would be open to AC joint injection as OP if needed for sx relief HCCA - transition to outpatient hospice today Palliative care consult appreciated. (Christos Lucio MD)
== END 2017-03-24 11:27 | disposition hospice, home (50) | DRG 948 ==
LOC: ENRESERVTM → ENRESERVDT → C.EDB 10:20 → C.4E 13:24
PROVIDERS: ADMIT Family Medicine; ATTEND Family Medicine
DX: G89.3 Neoplasm related pain (acute) (chronic) (principal); C22.0 Liver cell carcinoma; I82.402 Acute embolism and thrombosis of unspecified deep veins of left lower extremity; R63.4 Abnormal weight loss; Z68.32 Body mass index [BMI] 32.0-32.9, adult; F41.9 Anxiety disorder, unspecified; E66.9 Obesity, unspecified; I10 Essential (primary) hypertension; K21.9 Gastro-esophageal reflux disease without esophagitis; Z51.5 Encounter for palliative care; Z87.19 Personal history of other diseases of the digestive system; F17.210 Nicotine dependence, cigarettes, uncomplicated; M06.9 Rheumatoid arthritis, unspecified; B18.2 Chronic viral hepatitis C; Z87.442 Personal history of urinary calculi; Z83.79 Family history of other diseases of the digestive system; Z82.49 Family history of ischemic heart disease and other diseases of the circulatory system; Z84.1 Family history of disorders of kidney and ureter; Z83.6 Family history of other diseases of the respiratory system; Z80.9 Family history of malignant neoplasm, unspecified; Z85.51 Personal history of malignant neoplasm of bladder